=== PATIENT | male | born 1965 | race Caucasian/White ===

== ENCOUNTER 2017-06-11 14:26 | Emergency (ER) | payer SELFPAY ==
[2017-06-11 14:32] VITALS: BP 161/76
--- NOTE | 2017-06-11 15:39 | ER Document Report ---
HPI - HPI Patient complains to provider of: injuries from fall Onset: Yesterday Quality of pain: Achy Pain Level: 3 Context: 52 yo male slipped and right leg came out from under him while at the library yesterday causing him to fall. c/o left elbow pain, right ankle and .right 5th finger pain. No chest or abdominal pain. Associated Symptoms: None Exacerbated by: Movement Relieved by: Denies Similar symptoms previously: No Recently seen / treated by doctor: No - ROS ROS below otherwise negative: Yes Systems Reviewed and Negative: Yes All other systems reviewed and negative - CARDIOVASCULAR Cardiovascular: DENIES: Chest pain - DERM Skin Color: Normal Past Medical History - General Information source: Patient - Social History Smoking Status: Former Smoker Chew tobacco use (# tins/day): No Frequency of alcohol use: None Drug Abuse: None Occupation: [employer] Lives with: Family Family History: Reviewed & Not Pertinent Patient has suicidal ideation: No Patient has homicidal ideation: No - Past Medical History Cardiac Medical History: Reports: Hx Hypercholesterolemia, Hx Hypertension Endocrine Medical History: Reports: Hx Diabetes Mellitus Type 2 Renal/ Medical History: Denies: Hx Peritoneal Dialysis Past Surgical History: Reports: Hx Genitourinary Surgery - vasectomy, Hx Orthopedic Surgery - right finger Vertical Provider Document - CONSTITUTIONAL Agree With Documented VS: Yes Exam Limitations: No Limitations General Appearance: No Apparent Distress - INFECTION CONTROL TRAVEL OUTSIDE OF THE [place] IN LAST 30 DAYS: No - HEENT HEENT: Atraumatic, Normocephalic - NECK Neck: Supple - RESPIRATORY Respiratory: Breath Sounds Normal, No Respiratory Distress O2 Sat by Pulse Oximetry: 98 - CARDIOVASCULAR Cardiovascular: Regular Rate, Regular Rhythm - MUSCULOSKELETAL/EXTREMETIES Musculoskeletal/Extremeties: MAEW, FROM, Tender - right 5th MCP, no swelling, FROM, non tender left elbow, FROM, no swelling but tender medial right ankle- minimal - NEURO Level of Consciousness: Awake, Alert, Appropriate Motor/Sensory: No Motor Deficit, No Sensory Deficit - DERM Integumentary: Warm, Dry Course - Re-evaluation Re-evalutation: 06/11/17 16:37 X-rays are negative, patient is asking for something stronger than Ultram that he had at home and took and did not work. I recommended that he take Motrin and Tylenol as well and that the 3 of those should manage the pain. - Vital Signs Vital signs: Temp Pulse Resp BP Pulse Ox 98.1 F 54 L 20 161/76 H 98 06/11/17 14:31 06/11/17 14:31 06/11/17 14:31 06/11/17 14:31 06/11/17 14:31 Discharge - Discharge Clinical Impression: fall, sprain right 5th finger Right ankle sprain Qualifiers: Encounter type: initial encounter Involved ligament of ankle: unspecified ligament Qualified Code(s): S93.401A - Sprain of unspecified ligament of right ankle, initial encounter Left elbow contusion Qualifiers: Encounter type: initial encounter Qualified Code(s): S50.02XA - Contusion of left elbow, initial encounter Heel spur Qualifiers: Laterality: right Qualified Code(s): M77.31 - Calcaneal spur, right foot Condition: Good Disposition: HOME, SELF-CARE Additional Instructions: warm compress to sore areas see your doctor for follow up tylenol motrin ultram (you have at home) Please complete the patient satisfaction survey if you get one, and return it.. If you do not receive a survey, then you can go to the [facility] website, [email or web address] and place your comments about your very good care. Thank you very much. It was a pleasure being your medical provider today. Prescriptions: Ibuprofen [Motrin 800 mg Tablet] 800 mg PO Q8HP PRN #30 tablet PRN Reason: Referrals: ESTRELLA MARROQUIN MD [Primary Care Provider] - Follow up as needed
--- NOTE | 2017-06-11 16:24 | RADIOLOGY REPORT (SQ) ---
EXAM DESCRIPTION: ELBOW LEFT OVER 2 VIEWS COMPLETED DATE/TIME: 06/11/2017 4:11 pm REASON FOR STUDY: fall in library COMPARISON: None. NUMBER OF VIEWS: Four views. TECHNIQUE: AP, lateral, and both oblique radiographic images acquired of the left elbow. LIMITATIONS: None. FINDINGS: MINERALIZATION: Normal. BONES: No acute fracture or dislocation. No worrisome bone lesions. JOINT: No effusion. SOFT TISSUES: No soft tissue swelling. No foreign body. OTHER: No other significant finding. IMPRESSION: NEGATIVE STUDY OF THE LEFT ELBOW. NO RADIOGRAPHIC EVIDENCE OF ACUTE INJURY. TECHNICAL DOCUMENTATION: JOB ID: [id number] [employer]- All Rights Reserved
--- NOTE | 2017-06-11 16:26 | RADIOLOGY REPORT (SQ) ---
EXAM DESCRIPTION: HAND RIGHT 3 VIEWS COMPLETED DATE/TIME: 06/11/2017 4:11 pm REASON FOR STUDY: fall in library COMPARISON: None. EXAM PARAMETERS: NUMBER OF VIEWS: Three views. TECHNIQUE: AP, lateral and oblique radiographic images acquired of the right hand. LIMITATIONS: None. FINDINGS: MINERALIZATION: Normal. BONES: No acute fracture is seen. There is deformity of the terminal tuft of the 3rd distal phalanx, but the bone is corticated and this does not appear to represent an acute fracture. JOINTS: No effusions. SOFT TISSUES: No soft tissue swelling. No foreign body. OTHER: No other significant finding. IMPRESSION: No acute abnormality. Findings in the 3rd distal phalanx as described. Correlate clini teto. TECHNICAL DOCUMENTATION: JOB ID: [id number] [employer]- All Rights Reserved
--- NOTE | 2017-06-11 16:27 | RADIOLOGY REPORT (SQ) ---
EXAM DESCRIPTION: ANKLE RIGHT COMPLETE COMPLETED DATE/TIME: 06/11/2017 4:11 pm REASON FOR STUDY: fall in library COMPARISON: None. NUMBER OF VIEWS: Three views. TECHNIQUE: AP, lateral, and oblique radiographic images acquired of the right ankle. LIMITATIONS: None. FINDINGS: MINERALIZATION: Normal. BONES: No fracture. Calcaneal spurs. JOINTS: No effusions. SOFT TISSUES: No soft tissue swelling. No foreign body. OTHER: No other significant finding. IMPRESSION: Calcaneal spurs with no acute abnormality. TECHNICAL DOCUMENTATION: JOB ID: [id number] [employer]- All Rights Reserved
[2017-06-11] MEDS ORDERED: IBUPROFEN 800 MG TABLET PO ONE (16:36)
[2017-06-11] MEDS ORDERED: ACETAMINOPHEN 325 MG TABLET PO ONE (16:36)
== END 2017-06-11 16:52 | disposition home or self-care (01) ==
LOC: ER 14:26
DX: S93.401A Sprain of unspecified ligament of right ankle, initial encounter (principal); S50.02XA Contusion of left elbow, initial encounter; S63.616A Unspecified sprain of right little finger, initial encounter; M77.31 Calcaneal spur, right foot; W01.0XXA Fall on same level from slipping, tripping and stumbling without subsequent striking against object, initial encounter; E78.00 Pure hypercholesterolemia, unspecified; I10 Essential (primary) hypertension; Z87.891 Personal history of nicotine dependence
CPT/HCPCS: 99283

== ENCOUNTER 2018-07-29 11:06 | Emergency (ER) | payer OTHER ==
--- NOTE | 2018-07-29 11:33 | ER Document Report ---
ED Medical Screen (RME) - General Chief Complaint: Chest Pain Stated Complaint: SHORT OF BREATH/ABDOMINAL PAIN Time Seen by Provider: 07/29/18 11:31 Mode of Arrival: Ambulatory Information source: Patient Notes: 53-year-old male presented to ED for complaint of shortness of breath chest pressure pressure, abdominal distention, and pressure in his head when he bends over. He states he also if he breathes deep or bends over he gets very dizzy. He states he has a history of CHF COPD blood pressure cholesterol and diabetes. He states he also has Kidney insufficiency. Lungs are mildly diminished but not severely. Patient is alert and oriented respirations regular at this time. We will get blood work EKG chest x-ray and start a saline lock. Patient will be given aspirin. I have greeted and performed a rapid initial assessment of this patient. A comprehensive ED assessment and evaluation of the patient, analysis of test results and completion of medical decision making process will be conducted by an additional ED providers. TRAVEL OUTSIDE OF THE U.S. IN LAST 30 DAYS: No - Related Data Allergies/Adverse Reactions: lisinopril Allergy (Verified 07/29/18 11:09) Past Medical History - Past Medical History Cardiac Medical History: Reports: Hx Hypercholesterolemia, Hx Hypertension Endocrine Medical History: Reports: Hx Diabetes Mellitus Type 2 Renal/ Medical History: Denies: Hx Peritoneal Dialysis Past Surgical History: Reports: Hx Genitourinary Surgery - vasectomy, Hx Orthopedic Surgery - right finger Physical Exam - Vital signs Vitals: Pulse BP Pulse Ox 51 L 144/95 H 97 07/29/18 11:21 07/29/18 11:21 07/29/18 11:21 Course - Vital Signs Vital signs: Temp Pulse Resp BP Pulse Ox 51 L 144/95 H 97 07/29/18 11:21 07/29/18 11:21 07/29/18 11:21 Doctor's Discharge - Discharge Referrals: ESTRELLA MARROQUIN MD [Primary Care Provider] - Follow up as needed
[2018-07-29] MEDS ORDERED: ASPIRIN 81 MG TABLET, CHEWABLE PO ONE (11:34)
[2018-07-29 12:08] LABS: ABSOLUTE EOSINOPHILS # (AUTO) 0.1 10^3/uL (0.0-0.6); ABSOLUTE LYMPHOCYTES (AUTO) 1.3 10^3/uL (0.5-4.7); ABSOLUTE MONOCYTES (AUTO) 0.4 10^3/uL (0.1-1.4); ABSOLUTE NEUT (AUTO) 3.8 10^3/uL (1.7-8.2); BASOPHILS % (AUTO) 0.4 % (0-2); EOSINOPHILS % (AUTO) 2.2 % (0-6); HEMATOCRIT 39.3 % (37.9-51.0); HEMOGLOBIN 13.6 g/dL (13.5-17.0); LYMPHOCYTES % (AUTO) 22.7 % (13-45); MEAN CORPUSCULAR HEMOGLOBIN 30.2 pg (27.0-33.4); MEAN CORPUSCULAR HGB CONC 34.6 g/dL (32.0-36.0); MEAN CORPUSCULAR VOLUME 87 fl (80-97); MONOCYTES % (AUTO) 7.2 % (3-13); PLATELET COUNT 181 10^3/uL (150-450); RED CELL DISTRIBUTION WIDTH 14.9 % (11.5-14.0); SEGMENTED NEUTROPHILS % (AUTO) 67.5 % (42-78); TOTAL CELLS COUNTED % (AUTO) 100 %; WHITE BLOOD COUNT 5.6 10^3/uL (4.0-10.5)
[2018-07-29 12:11] LABS: APPEARANCE,URINE CLEAR; BILIRUBIN,URINE NEGATIVE (NEGATIVE); COLOR,URINE YELLOW; GLUCOSE, URINE 50 mg/dL (NEGATIVE); KETONES,URINE NEGATIVE (NEGATIVE); LEUKOCYTE ESTERASE,URINE NEGATIVE (NEGATIVE); NITRITE,URINE NEGATIVE (NEGATIVE); PROTEIN,URINE 100 mg/dL (NEGATIVE); URINE SPECIFIC GRAVITY 1.013; UROBILINOGEN,URINE NEGATIVE mg/dL (<2.0)
--- NOTE | 2018-07-29 12:21 | RADIOLOGY REPORT (SQ) ---
EXAM DESCRIPTION: CHEST 2 VIEWS COMPLETED DATE/TIME: 07/29/2018 12:12 pm REASON FOR STUDY: short of breath chest and head pressure COMPARISON: None. EXAM PARAMETERS: NUMBER OF VIEWS: two views TECHNIQUE: Digital Frontal and Lateral radiographic views of the chest acquired. RADIATION DOSE: NA LIMITATIONS: none FINDINGS: LUNGS AND PLEURA: No opacities, masses or pneumothorax. No pleural effusion. MEDIASTINUM AND HILAR STRUCTURES: No masses or contour abnormalities. HEART AND VASCULAR STRUCTURES: Heart normal size. No evidence for failure. BONES: No acute findings. HARDWARE: None in the chest. OTHER: No other significant finding. IMPRESSION: NO ACUTE RADIOGRAPHIC FINDING IN THE CHEST. TECHNICAL DOCUMENTATION: JOB ID: [id number] [employer]- All Rights Reserved Reading location - IP/workstation name: [email or web address]
--- NOTE | 2018-07-29 12:23 | RADIOLOGY REPORT (SQ) ---
EXAM DESCRIPTION: KUB/ABDOMEN (SINGLE VIEW) COMPLETED DATE/TIME: 07/29/2018 12:12 pm REASON FOR STUDY: abdominal distention and pressure COMPARISON: None. NUMBER OF VIEWS: One view. TECHNIQUE: Supine radiographic image of the abdomen acquired. LIMITATIONS: None. FINDINGS: BOWEL GAS PATTERN: Normal bowel gas pattern. No dilated loops. CALCIFICATIONS: Punctate calcified densities overlying right renal pelvis. SOFT TISSUES: No gross mass or suggestion of organomegaly. HARDWARE: None. BONES: No bone lesions or fracture. OTHER: No other significant finding. IMPRESSION: Small right renal calculi. Reading location - IP/workstation name: [email or web address]
[2018-07-29 12:24] LABS: ALANINE AMINOTRANSFERASE 100 U/L (21-72); ALBUMIN 3.9 g/dL (3.5-5.0); ALKALINE PHOSPHATASE 92 U/L (38-126); ANION GAP 7 (5-19); ASPARTATE AMINO TRANSFERASE 59 U/L (17-59); BILIRUBIN,DIRECT 0.3 mg/dL (0.0-0.4); BILIRUBIN,TOTAL 0.6 mg/dL (0.2-1.3); BLOOD UREA NITROGEN 22 mg/dL (7-20); CALCIUM 9.7 mg/dL (8.4-10.2); CARBON DIOXIDE 28 mmol/L (22-30); CHLORIDE 102 mmol/L (98-107); CREATINE KINASE 104 U/L (55-170); GLUCOSE 226 mg/dL (75-110); POTASSIUM 4.4 mmol/L (3.6-5.0); SODIUM 137.1 mmol/L (137-145); TOTAL PROTEIN 6.5 g/dL (6.3-8.2)
[2018-07-29 12:39] LABS: CREATINE KINASE MB 1.29 ng/mL (<4.55); TROPONIN I 0.013 ng/mL
--- NOTE | 2018-07-29 13:58 | ER Document Report ---
ED General - General Chief Complaint: Chest Pain Stated Complaint: SHORT OF BREATH/ABDOMINAL PAIN Time Seen by Provider: 07/29/18 11:31 Mode of Arrival: Ambulatory TRAVEL OUTSIDE OF THE [place] IN LAST 30 DAYS: No - HPI Patient complains to provider of: Feeling unwell bilateral leg swelling shortness of breath Notes: Patient coming in for multiple complaints patient was seen by the pti provider whose note is provided below 53-year-old male presented to ED for complaint of shortness of breath chest pressure pressure, abdominal distention, and pressure in his head when he bends over. He states he also if he breathes deep or bends over he gets very dizzy. He states he has a history of CHF COPD blood pressure cholesterol and diabetes. He states he also has Kidney insufficiency. Lungs are mildly diminished but not severely. Patient is alert and oriented respirations regular at this time. We will get blood work EKG chest x-ray and start a saline lock. Patient will be given aspirin. Upon my evaluation patient mostly complains of abdominal distention left lower chest wall pain swelling of his legs patient states mostly concerned they may be having a CHF exacerbation. Patient states he has been compliant with his medications. Patient also states he is noticed that his umbilical hernia has been getting larger patient otherwise denies any fevers or chills denies any recent travel patient looks to be in no obvious distress upon my evaluation. A brief review of the patient's medical records available in [facility] [employer] was performed - Related Data Allergies/Adverse Reactions: lisinopril Allergy (Verified 07/29/18 11:09) Past Medical History - General Information source: Patient - Social History Smoking Status: Unknown if Ever Smoked Family History: Reviewed & Not Pertinent Patient has suicidal ideation: No Patient has homicidal ideation: No - Past Medical History Cardiac Medical History: Reports: Hx Hypercholesterolemia, Hx Hypertension Endocrine Medical History: Reports: Hx Diabetes Mellitus Type 2 Renal/ Medical History: Denies: Hx Peritoneal Dialysis Past Surgical History: Reports: Hx Genitourinary Surgery - vasectomy, Hx Orthopedic Surgery - right finger Review of Systems - Review of Systems Constitutional: No symptoms reported EENT: No symptoms reported Cardiovascular: Chest pain, Dyspnea Respiratory: Short of breath Gastrointestinal: Abdominal pain Genitourinary: No symptoms reported Male Genitourinary: No symptoms reported Musculoskeletal: No symptoms reported Skin: No symptoms reported Hematologic/Lymphatic: No symptoms reported Neurological/Psychological: No symptoms reported -: Yes All other systems reviewed and negative Physical Exam - Vital signs Vitals: Pulse BP Pulse Ox 51 L 144/95 H 97 07/29/18 11:21 07/29/18 11:21 07/29/18 11:21 Interpretation: Normal - General General appearance: Appears well, Alert - HEENT Head: Normocephalic, Atraumatic Eyes: Normal Pupils: PERRL - Respiratory Respiratory status: No respiratory distress Chest status: Nontender Breath sounds: Normal Chest palpation: Normal - Cardiovascular Rhythm: Regular Heart sounds: Normal auscultation Murmur: No - Abdominal Inspection: Normal, Other - Umbilical hernia that is reducible Distension: No distension Bowel sounds: Normal Tenderness: Nontender Organomegaly: No organomegaly - Back Back: Normal, Nontender - Extremities General upper extremity: Normal inspection, Nontender, Normal color, Normal ROM, Normal temperature General lower extremity: Normal inspection, Nontender, Edema - 1-2+, Normal color, Normal ROM, Normal temperature, Normal weight bearing. No: Arcelia's sign - Neurological Neuro grossly intact: Yes Cognition: Normal Orientation: AAOx4 Adrian Coma Scale Eye Opening: Spontaneous Adrian Coma Scale Verbal: Oriented Elmore Coma Scale Motor: Obeys Commands Adrian Coma Scale Total: 15 Speech: Normal Motor strength normal: LUE, RUE, LLE, RLE Sensory: Normal - Psychological Associated symptoms: Normal affect, Normal mood - Skin Skin Temperature: Warm Skin Moisture: Dry Skin Color: Normal Course - Re-evaluation Re-evalutation: 07/29/18 15:24 The patient has atypical chest pain as the patient's chest pain is not suggestive of pulmonary embolus, cardiac ischemia, aortic dissection, or other serious etiology. Given the extremely low risk of these diagnoses further testing and evaluation for these possibilities does not appear to be indicated at this time. The patient has been instructed to return if the symptoms worsen or change in any way. 07/29/18 15:25 Patient evaluation revealing critical pathology. Patient does have swelling of his lower legs does upon reevaluation admit to partaking in all the festivities eating ham which may have caused increased swelling recommend increasing his Lasix for the next 2 days to twice daily patient states he has no pills at home to perform this otherwise no critical pathology seen patient is to follow-up with primary care physician. - Vital Signs Vital signs: Temp Pulse Resp BP Pulse Ox 98.1 F 62 14 156/77 H 95 07/29/18 14:26 07/29/18 14:26 07/29/18 14:26 07/29/18 14:26 07/29/18 14:26 - Laboratory Result Diagrams: 07/29/18 11:51 07/29/18 11:51 Laboratory results interpreted by me: 07/29/18 07/29/18 07/29/18 11:51 11:51 11:51 RDW 14.9 H BUN 22 H Creatinine 1.31 H Est GFR (Non-Af Amer) 57 L Glucose 226 H ALT 100 H Urine Protein 100 H Urine Glucose (UA) 50 H Discharge - Discharge Clinical Impression: Abdominal discomfort, Bilateral lower extremity edema, History of hypertension Dyspnea Qualifiers: Dyspnea type: unspecified Qualified Code(s): R06.00 - Dyspnea, unspecified Umbilical hernia Qualifiers: Obstruction and gangrene presence: without obstruction or gangrene Qualified Code(s): K42.9 - Umbilical hernia without obstruction or gangrene Condition: Good Disposition: HOME, SELF-CARE Instructions: Dependent Edema ([facility]), High Blood Pressure, Requiring Treatment ([facility]), Lasix, Umbilical Hernia ([facility]) Additional Instructions: Your laboratory studies not show any signs of skin pathology. I would recommend that you take Lasix twice a day for the next 48 hours to aid in some of your lower leg edema. I recommend following up with your primary care physician. Your chest x-ray does not show any signs of pneumonia Your abdominal x-ray shows signs of gas no other significant pathology Your laboratory studies showed no signs of cardiac damage of overt CHF electrolyte abnormality or signs of suggestive infection Referrals: ESTRELLA MARROQUIN MD [Primary Care Provider] - Follow up as needed
[2018-07-29 14:31] VITALS: BP 156/77
--- NOTE | 2018-07-29 15:09 | EKG REPORT ---
SEVERITY:- ABNORMAL ECG - SINUS RHYTHM NONSPECIFIC INTRAVENTRICULAR CONDUCTION DELAY : Confirmed by: Tina Cordero 29-Jul-2018 15:08:10
== END 2018-07-29 14:26 | disposition home or self-care (01) ==
LOC: ER 11:06
DX: R60.9 Edema, unspecified (principal); K42.9 Umbilical hernia without obstruction or gangrene; R06.00 Dyspnea, unspecified; R10.9 Unspecified abdominal pain; R07.9 Chest pain, unspecified; R06.02 Shortness of breath; E78.00 Pure hypercholesterolemia, unspecified; I10 Essential (primary) hypertension; E11.9 Type 2 diabetes mellitus without complications
CPT/HCPCS: 36415; 71046; 74018; 80053; 81001; 82550; 82553; 83880; 84484; 85025; 93005; 93010; 99285

== ENCOUNTER 2018-09-01 11:30 | Observation (INO) | payer OTHER ==
--- NOTE | 2018-09-01 11:56 | ER Document Report ---
ED Medical Screen (RME) - General Chief Complaint: Chest Pain Stated Complaint: SHORT OF BREATH,CHEST PAIN,DIZZY Time Seen by Provider: 09/01/18 11:50 Primary Care Provider: ESTRELLA MARROQUIN MD [Primary Care Provider] - Follow up as needed TRAVEL OUTSIDE OF THE [place]. IN LAST 30 DAYS: No - HPI Notes: 09/01/18 11:55 cp sob - Related Data Allergies/Adverse Reactions: lisinopril Allergy (Verified 07/29/18 11:09) Past Medical History - Past Medical History Cardiac Medical History: Reports: Hx Hypercholesterolemia, Hx Hypertension Endocrine Medical History: Reports: Hx Diabetes Mellitus Type 2 Renal/ Medical History: Denies: Hx Peritoneal Dialysis Past Surgical History: Reports: Hx Genitourinary Surgery - vasectomy, Hx Orthopedic Surgery - right finger Review of Systems - Review of Systems Cardiovascular: Chest pain Respiratory: Short of breath -: Yes All other systems reviewed and negative Physical Exam - Vital signs Vitals: Temp Pulse Resp BP Pulse Ox 98.1 F 54 L 16 143/85 H 94 09/01/18 11:48 09/01/18 11:48 09/01/18 11:48 09/01/18 11:48 09/01/18 11:48 - Respiratory Respiratory status: No respiratory distress Chest status: Nontender Breath sounds: Normal Chest palpation: Normal Course - Vital Signs Vital signs: Temp Pulse Resp BP Pulse Ox 98.1 F 54 L 16 143/85 H 94 09/01/18 11:48 09/01/18 11:48 09/01/18 11:48 09/01/18 11:48 09/01/18 11:48 Doctor's Discharge - Discharge Referrals: ESTRELLA MARROQUIN MD [Primary Care Provider] - Follow up as needed
[2018-09-01 12:24] LABS: MEAN CORPUSCULAR VOLUME 88 fl (80-97)
--- NOTE | 2018-09-01 12:26 | ER Document Report ---
ED General - General Chief Complaint: Chest Pain Stated Complaint: SHORT OF BREATH,CHEST PAIN,DIZZY Time Seen by Provider: 09/01/18 11:50 Primary Care Provider: ESTRELLA MARROQUIN MD [Primary Care Provider] - Follow up as needed Notes: 53-year-old male, overweight with hypertension history of right-sided CHF COPD and a long smoking history, has now quit, presents with abrupt onset of severe right-sided chest pain, shortness of breath after vacuuming the floor. He walked over had some water and the pain resolved after about 10 minutes. Has not recurred. No pain radiation or diaphoresis. History of stress test in 2013 in [place] which she says was normal. No ripping or tearing pain not maximal at onset no radiation to back no neurologic symptoms. TRAVEL OUTSIDE OF THE [place] IN LAST 30 DAYS: No - Related Data Allergies/Adverse Reactions: lisinopril Allergy (Verified 07/29/18 11:09) Past Medical History - Social History Smoking Status: Former Smoker Family History: Reviewed & Not Pertinent Patient has suicidal ideation: No Patient has homicidal ideation: No - Past Medical History Cardiac Medical History: Reports: Hx Hypercholesterolemia, Hx Hypertension Endocrine Medical History: Reports: Hx Diabetes Mellitus Type 2 Renal/ Medical History: Denies: Hx Peritoneal Dialysis Past Surgical History: Reports: Hx Genitourinary Surgery - vasectomy, Hx Orthopedic Surgery - right finger Review of Systems - Review of Systems Notes: REVIEW OF SYSTEMS GEN: Denies fever, chills, weight loss ENT: Denies sore throat, nasal discharge, ear pain EYES: Denies blurry vision, eye pain, discharge CV:chest pain, denies palpitations, edema RESP: Denies cough, shortness of breath, wheezing GI: Denies abdominal pain, nausea, vomiting, diarrhea MSK: Denies joint pain/swelling, edema, SKIN: Denies rash, skin lesions LYMPH: Denies swollen glands/lymph nodes NEURO: Denies headache, focal weakness or numbness, dizziness PSYCH: Denies depression, suicidal or homicidal ideation PHYSICAL EXAMINATION General: Obese. No acute distress, well-nourished Head: Atraumatic, normocephalic ENT: Mouth normal, oropharynx moist, no exudates or tonsillar enlargement Eyes: Conjunctiva normal, pupils equal, lids normal Neck: No JVD, supple, no guarding CVS: Normal rate, regular rhythm, no murmurs Resp: No resp distress, equal and normal breath sounds bilaterally GI: Nondistended, soft, no tenderness to palpation, no rebound or guarding Ext: No deformities, no edema, normal range of motion in upper and lower ext Back: No CVA or midline TTP Skin: No rash, warm Lymphatic: No lymphadeopathy noted Neuro: Awake, alert. Face symmetric. GCS 15. Physical Exam - Vital signs Vitals: Temp Pulse Resp BP Pulse Ox 98.1 F 54 L 16 143/85 H 94 09/01/18 11:48 09/01/18 11:48 09/01/18 11:48 09/01/18 11:48 09/01/18 11:48 Course - Re-evaluation Re-evalutation: 09/01/18 12:25 53-year-old male with multiple risk factors for coronary disease, negative stress test just about 5 years ago, presents with brief episode of chest pain which has typical characteristics. Pain-free in the ED. ECG is negative and unchanged. HEART 4 09/01/18 15:02 Patient still having intermittent pain. First troponin negative. Given this and his ongoing shortness of breath without examination he will be admitted. Discussed with hospitalist. - Vital Signs Vital signs: Temp Pulse Resp BP Pulse Ox 98.1 F 54 L 16 143/85 H 94 09/01/18 11:48 09/01/18 11:48 09/01/18 11:48 09/01/18 11:48 09/01/18 11:48 - Laboratory Result Diagrams: 09/01/18 12:09 09/01/18 12:09 Laboratory results interpreted by me: 09/01/18 09/01/18 12:09 12:09 RDW 15.0 H BUN 28 H Creatinine 1.58 H Est GFR ( Amer) 56 L Est GFR (Non-Af Amer) 46 L Glucose 131 H AST 102 H ALT 120 H Creatine Kinase 173 H - Diagnostic Test Radiology reviewed: Image reviewed, Reports reviewed - EKG Interpretation by Me Rate: Normal Rhythm: NSR When compared to previous EKG there are: No significant change - No acute ST or T wave changes compared to prior Discharge - Discharge Clinical Impression: Chest pain, unspecified Qualifiers: Chest pain type: unspecified Qualified Code(s): R07.9 - Chest pain, unspecified Condition: Fair Disposition: ADMITTED OBSERVATION Admitting Provider: Hospitalist Unit Admitted: Telemetry Referrals: ESTRELLA MARROQUIN MD [Primary Care Provider] - Follow up as needed
--- NOTE | 2018-09-01 12:29 | RADIOLOGY REPORT (SQ) ---
EXAM DESCRIPTION: CHEST SINGLE VIEW COMPLETED DATE/TIME: 09/01/2018 12:19 pm REASON FOR STUDY: sob COMPARISON: 08/29/2017 EXAM PARAMETERS: NUMBER OF VIEWS: One view. TECHNIQUE: Single frontal radiographic view of the chest acquired. RADIATION DOSE: NA LIMITATIONS: None. FINDINGS: LUNGS AND PLEURA: No opacities, masses or pneumothorax. No pleural effusion. MEDIASTINUM AND HILAR STRUCTURES: No masses. Contour normal. HEART AND VASCULAR STRUCTURES: Heart normal in size. Normal vasculature. BONES: No acute findings. HARDWARE: None in the chest. OTHER: No other significant finding. IMPRESSION: NO ACUTE RADIOGRAPHIC FINDING IN THE CHEST. TECHNICAL DOCUMENTATION: JOB ID: [id number] [employer]- All Rights Reserved Reading location - IP/workstation name: [email or web address]
[2018-09-01 12:40] LABS: ABSOLUTE EOSINOPHILS # (AUTO) 0.1 10^3/uL (0.0-0.6); ABSOLUTE LYMPHOCYTES (AUTO) 1.4 10^3/uL (0.5-4.7); ABSOLUTE MONOCYTES (AUTO) 0.6 10^3/uL (0.1-1.4); ABSOLUTE NEUT (AUTO) 6.8 10^3/uL (1.7-8.2); BASOPHILS % (AUTO) 0.4 % (0-2); EOSINOPHILS % (AUTO) 1.6 % (0-6); HEMATOCRIT 43.7 % (37.9-51.0); HEMOGLOBIN 15.1 g/dL (13.5-17.0); LYMPHOCYTES % (AUTO) 15.6 % (13-45); MEAN CORPUSCULAR HEMOGLOBIN 30.6 pg (27.0-33.4); MEAN CORPUSCULAR HGB CONC 34.7 g/dL (32.0-36.0); MONOCYTES % (AUTO) 6.5 % (3-13); PLATELET COUNT 201 10^3/uL (150-450); RED BLOOD COUNT 4.95 10^6/uL (4.35-5.55); SEGMENTED NEUTROPHILS % (AUTO) 75.9 % (42-78); TOTAL CELLS COUNTED % (AUTO) 100 %
[2018-09-01 12:56] LABS: ALANINE AMINOTRANSFERASE 120 U/L (21-72); ALBUMIN 4.6 g/dL (3.5-5.0); ALKALINE PHOSPHATASE 79 U/L (38-126); ANION GAP 12 (5-19); ASPARTATE AMINO TRANSFERASE 102 U/L (17-59); BILIRUBIN,DIRECT 0.4 mg/dL (0.0-0.4); BILIRUBIN,TOTAL 0.9 mg/dL (0.2-1.3); BLOOD UREA NITROGEN 28 mg/dL (7-20); CALCIUM 9.7 mg/dL (8.4-10.2); CARBON DIOXIDE 30 mmol/L (22-30); CHLORIDE 99 mmol/L (98-107); CREATINE KINASE 173 U/L (55-170); GLUCOSE 131 mg/dL (75-110); LIPASE 178.1 U/L (23-300); POTASSIUM 4.3 mmol/L (3.6-5.0); SODIUM 141.2 mmol/L (137-145); TOTAL PROTEIN 7.4 g/dL (6.3-8.2)
[2018-09-01 13:05] LABS: CREATINE KINASE MB 1.42 ng/mL (<4.55); TROPONIN I 0.014 ng/mL
--- NOTE | 2018-09-01 13:22 | EKG REPORT ---
SEVERITY:- ABNORMAL ECG - SINUS RHYTHM BORDERLINE T ABNORMALITIES, INFERIOR LEADS : Confirmed by: Malik Gallagher MD 01-Sep-2018 13:21:18
[2018-09-01] MEDS ORDERED: ACETAMINOPHEN 325 MG TABLET PO ONE (14:57)
[2018-09-01] MEDS ORDERED: IPRATROPIUM/ALBUTEROL 0.5-2.5 MG/3 ML AMPUL NEB PRN (16:31)
[2018-09-01] MEDS ORDERED: ACETAMINOPHEN 325 MG TABLET PO PRN (16:31)
[2018-09-01] MEDS ORDERED: ONDANSETRON HCL INJ/PF 4 MG/2 ML SDV IV PRN (16:45)
[2018-09-01] MEDS ORDERED: MAGNESIUM HYDROXIDE SUSP 30 ML UDCUP PO PRN (16:45)
[2018-09-01] MEDS ORDERED: MAG HYDROX/AL HYDROX/SIMETH SUSP 30 ML UDCUP PO PRN (16:45)
[2018-09-01] MEDS ORDERED: NORMAL SALINE 1000 ML 1,000 ML IV PRN (16:51)
[2018-09-01] MEDS ORDERED: DEXTROSE 40% GEL 15 GM TUBE PO PRN ×2 (19:31)
[2018-09-01] MEDS ORDERED: GLUCAGON,HUMAN RECOMB 1 MG INJ IM PRN (19:31)
[2018-09-01] MEDS ORDERED: DEXTROSE 50%-WATER 25 GM/50 ML DISP.SYRIN IV PRN ×2 (19:31)
[2018-09-01] MEDS ORDERED: METOPROLOL TARTRATE PF/INJ 5 MG/5 ML SDV IV PRN (19:37)
--- NOTE | 2018-09-01 19:40 | PDOC H&P ---
History of Present Illness Admission Date/PCP: 09/01/18 15:23 ESTRELLA MARROQUIN MD Patient complains of: Chest pain History of Present Illness: NILTON FARRELL is a 53 year old male with a past medical history of COPD, MARIELENA, CHF, DM 2, CKD 3, hypertension, hyperlipidemia, gout who presented to the emergency department today with a an atypical chest pain lasting approximately 10 minutes, substernal described as sharp nonradiating and not associated with symptoms at the time. Says that the pain resolved after drinking water. However, he then developed intermittent shortness of breath and dizziness. He reports that since arriving to the emergency department he has noted continued intermittent sharp pains though now lasting only seconds. He denies previous history of the same; does believe he had a negative stress test approximately 6 [place] ago [place] Not followed by local cardiology. Evaluation in the emergency department revealed CKD (creatinine of 1.58, BUN 28), minimally elevated LFTs, negative troponin, normal lipase, benign chest x- ray, and EKG demonstrating sinus bradycardia with nonspecific T wave changes to the inferior leads. He is referred to the hospitalist service for chest pain rule out. Past Medical History Cardiac Medical History: Reports: Congestive Heart Failure, Hyperlipidema, Hyp ertension Denies: Coronary Artery Disease, Myocardial Infarction Pulmonary Medical History: Reports: Chronic Obstructive Pulmonary Disease (COPD), Sleep Apnea EENT Medical History: Reports: None Endocrine Medical History: Reports: Diabetes Mellitus Type 2, Obesity Renal/ Medical History: Reports: Chronic Kidney Disease Malignancy Medical History: Reports: None GI Medical History: Reports: Gastroesophageal Reflux Disease Musculoskeltal Medical History: Reports: None Skin Medical History: Reports: None Psychiatric Medical History: Reports: Tobacco Dependency Traumatic Medical History: Reports: None Hematology: Reports: None Infectious Medical History: Reports: None Past Surgical History Past Surgical History: Reports: Orthopedic Surgery - right finger Social History Information Source: Patient Smoking Status: Former Smoker Cigarettes Packs Per Day: 1.5 Number of Years Smokin Last Time Smoked: 09/02/13 Frequency of Alcohol Use: None Hx Recreational Drug Use: No Drugs: None Hx Prescription Drug Abuse: No - Advance Directive Resuscitation Status: Full Code Family History Family History: Reviewed & Not Pertinent Parental Family History Reviewed: Yes Children Family History Reviewed: Yes Sibling(s) Family History Reviewed.: Yes Medication/Allergy Home Medications: Albuterol Sulfate [Proair Hfa Inhalation Aerosol 8.5 gm Mdi] 2 puff IH ASDIR PRN 09/01/18 Allopurinol [Zyloprim 300 mg Tablet] 300 mg PO DAILY 09/01/18 Amlodipine Besylate [Norvasc 10 mg Tablet] 10 mg PO DAILY 09/01/18 Budesonide/Formoterol Fumarate [Symbicort Hfa 160-4.5 Mcg Inhaler 6 gm] 2 puff IH Q12 09/01/18 Cetirizine HCl [Zyrtec 10 mg Tablet] 10 mg PO QHS 09/01/18 Clonidine HCl [Catapres 0.3 mg Tablet] 0.3 mg PO DAILY 09/01/18 Esomeprazole Magnesium [Nexium 24Hr] 20 mg PO DAILY 09/01/18 Fenofibrate 54 mg PO DAILY 09/01/18 Furosemide [Lasix 40 mg Tablet] 40 mg PO DAILY 09/01/18 Hydralazine HCl [Apresoline 25 mg Tablet] 25 mg PO BID 09/01/18 Nebivolol HCl [Bystolic] 20 mg PO DAILY 09/01/18 Tiotropium [place] [Spiriva Respimat] 2 puff IH DAILY 09/01/18 Allergies/Adverse Reactions: lisinopril Allergy (Verified 07/29/18 11:09) Review of Systems Constitutional: ABSENT: chills, fever(s), headache(s), weight gain, weight loss Eyes: ABSENT: visual disturbances Ears: ABSENT: hearing changes Cardiovascular: PRESENT: chest pain, dyspnea on exertion. ABSENT: edema, orthropnea, palpitations Respiratory: PRESENT: cough, dyspnea. ABSENT: hemoptysis Gastrointestinal: ABSENT: abdominal pain, constipation, diarrhea, hematemesis, hematochezia, nausea, vomiting Genitourinary: ABSENT: dysuria, hematuria Musculoskeletal: ABSENT: joint swelling Integumentary: ABSENT: rash, wounds Neurological: ABSENT: abnormal gait, abnormal speech, confusion, dizziness, focal weakness, syncope Psychiatric: ABSENT: anxiety, depression, homidical ideation, suicidal ideation Endocrine: ABSENT: cold intolerance, heat intolerance, polydipsia, polyuria Hematologic/Lymphatic: ABSENT: easy bleeding, easy bruising Physical Exam Vital Signs: Temp Pulse Resp BP Pulse Ox 97.7 F 51 L 15 143/81 H 98 09/01/18 18:02 09/01/18 18:02 09/01/18 18:02 09/01/18 18:02 09/01/18 18:02 Intake & Output 08/31/18 09/01/18 09/02/18 06:59 06:59 06:59 Weight 138.5 kg General appearance: PRESENT: no acute distress, cooperative, morbidly obese, well-developed, well-nourished Head exam: PRESENT: atraumatic, normocephalic Eye exam: PRESENT: conjunctiva pink, EOMI, PERRLA. ABSENT: scleral icterus Ear exam: PRESENT: normal external ear exam Mouth exam: PRESENT: moist, tongue midline Neck exam: ABSENT: carotid bruit, JVD, lymphadenopathy, thyromegaly Respiratory exam: PRESENT: clear to auscultation ruthann, symmetrical, unlabored, other - Supplemental oxygen via nasal cannula. ABSENT: rales, rhonchi, wheezes Cardiovascular exam: PRESENT: RRR, +S1, +S2. ABSENT: diastolic murmur, rubs, systolic murmur Pulses: PRESENT: normal dorsalis pedis pul Vascular exam: PRESENT: normal capillary refill GI/Abdominal exam: PRESENT: normal bowel sounds, soft. ABSENT: distended, guarding, mass, organolmegaly, rebound, tenderness Rectal exam: PRESENT: deferred Extremities exam: PRESENT: full ROM. ABSENT: calf tenderness, clubbing, pedal edema Neurological exam: PRESENT: alert, awake, oriented to person, oriented to place, oriented to time, oriented to situation, CN II-XII grossly intact. ABSENT: motor sensory deficit Psychiatric exam: PRESENT: appropriate affect, normal mood. ABSENT: homicidal ideation, suicidal ideation Skin exam: PRESENT: dry, intact, warm. ABSENT: cyanosis, rash Results Laboratory Results: 09/01/18 12:09 09/01/18 12:09 09/01/18 09/01/18 12:09 12:09 WBC 9.0 RBC 4.95 Hgb 15.1 Hct 43.7 MCV 88 MCH 30.6 MCHC 34.7 RDW 15.0 H Plt Count 201 Seg Neutrophils % 75.9 Lymphocytes % 15.6 Monocytes % 6.5 Eosinophils % 1.6 Basophils % 0.4 Absolute Neutrophils 6.8 Absolute Lymphocytes 1.4 Absolute Monocytes 0.6 Absolute Eosinophils 0.1 Absolute Basophils 0.0 Sodium 141.2 Potassium 4.3 Chloride 99 Carbon Dioxide 30 Anion Gap 12 BUN 28 H Creatinine 1.58 H Est GFR ( Amer) 56 L Est GFR (Non-Af Amer) 46 L Glucose 131 H Calcium 9.7 Magnesium 1.8 Total Bilirubin 0.9 AST 102 H ALT 120 H Alkaline Phosphatase 79 Total Protein 7.4 Albumin 4.6 Lipase 178.1 09/01/18 09/01/18 09/01/18 12:09 12:09 12:09 Creatine Kinase 173 H CK-MB (CK-2) 1.42 Troponin I 0.014 NT-Pro-B Natriuret Pep 92 09/01/18 16:46 Creatine Kinase CK-MB (CK-2) Troponin I 0.015 NT-Pro-B Natriuret Pep Impressions: Chest X-Ray 09/01/18 11:50 IMPRESSION: NO ACUTE RADIOGRAPHIC FINDING IN THE CHEST. Assessment & Plan - Diagnosis (1) Chest pain, unspecified Qualifiers: Chest pain type: unspecified Qualified Code(s): R07.9 - Chest pain, unspecified Is this a current diagnosis for this admission?: Yes Plan: Patient presented with atypical chest pain. An initial workup in the emergency department was unremarkable including initial negative troponin, benign chest x-ray, and unremarkable EKG. He does have multiple risk factors including age, male, tobacco use, obesity, hypertension, hyperlipidemia, and diabetes. Therefore he is admitted for chest pain rule out. ProBNP is 92 He will be admitted to the medical floor on continuous cardiac telemetry. We will trend troponins. Given his history of "right side" CHF, will obtain echocardiogram. Stress test in the morning. Will risk stratify with TSH, A1c, and lipid panel with a.m. lab work. (2) Hypertension Is this a current diagnosis for this admission?: Yes Plan: Patient is noted to be mildly hypertensive at present; blood pressure 139/71 Home medication list includes amlodipine, hydralazine, Bystolic, clonidine, furosemide. Patient is placed on a cardiac diet. We will continue amlodipine 10 mg nightly. We will resume home medications once dosing is reconciled. IV Lopressor as needed for blood pressure control. (3) COPD (chronic obstructive pulmonary disease) Is this a current diagnosis for this admission?: Yes Plan: Stable and without exacerbation at this time. Continue home dose of Spiriva and Symbicort. As needed nebulizer treatments. Continue home dose Zyrtec. No indications for antibiotics or steroids at this time. (4) MARIELENA (obstructive sleep apnea) Is this a current diagnosis for this admission?: Yes Plan: Supplemental oxygen as needed to maintain oxygen saturations >89%. May use home BiPAP device. - Time Time Spent: 50 to 70 Minutes Medications reviewed and adjusted accordingly: Yes Anticipated discharge: Home Within: within 24 hours
[2018-09-01] MEDS ORDERED: ALBUTEROL SULFATE HFA (90 MCG/PUFF) 200 PUFF/8.5 GM MDI IH PRN (20:54)
[2018-09-01] MEDS ORDERED: CETIRIZINE 10 MG TABLET PO SCH ×2 (22:00)
[2018-09-01] MEDS ORDERED: BUDESONIDE/FORMOTEROL 160-4.5 MCG 60 PUFF/6 GM MDI IH SCH (22:00)
[2018-09-01] MEDS ORDERED: (PENDING PHARMACY ID) (Apremilast [Otezla] 30 MG) PO SCH (22:00)
[2018-09-01] MEDS ORDERED: AMLODIPINE BESYLATE 10 MG TABLET PO SCH (22:00)
[2018-09-01] MEDS: HEPARIN SOD (PORCINE) 5,000 UNIT/ML 1 ML SYRINGE SUBCUT SCH (22:19)
[2018-09-01] MEDS: OTEZLA 30 MG PO SCH (22:22)
[2018-09-01] MEDS: BUDESONIDE/FORMOTEROL 160-4.5 MCG 60 PUFF/6 GM MDI IH SCH (22:22)
[2018-09-01] MEDS: FAMOTIDINE 20 MG TABLET PO SCH (22:23)
[2018-09-01] MEDS: HYDRALAZINE HCL 25 MG TABLET PO SCH (22:23)
[2018-09-01] MEDS: INSULIN LISPRO 100 UNIT/ML 3 ML VIAL SUBCUT SCH (22:24)
[2018-09-02] MEDS: HEPARIN SOD (PORCINE) 5,000 UNIT/ML 1 ML SYRINGE SUBCUT SCH (05:30)
[2018-09-02] MEDS ORDERED: LANSOPRAZOLE 15 MG TAB.RAP.DR PO SCH (06:00)
[2018-09-02 07:11] LABS: HEMATOCRIT 40.9 % (37.9-51.0); HEMOGLOBIN 14.2 g/dL (13.5-17.0); MEAN CORPUSCULAR HEMOGLOBIN 30.9 pg (27.0-33.4); MEAN CORPUSCULAR HGB CONC 34.7 g/dL (32.0-36.0); MEAN CORPUSCULAR VOLUME 89 fl (80-97); PLATELET COUNT 164 10^3/uL (150-450); RED CELL DISTRIBUTION WIDTH 14.8 % (11.5-14.0); WHITE BLOOD COUNT 7.3 10^3/uL (4.0-10.5)
[2018-09-02 07:28] LABS: ANION GAP 9 (5-19); BLOOD UREA NITROGEN 26 mg/dL (7-20); CALCIUM 9.5 mg/dL (8.4-10.2); CARBON DIOXIDE 29 mmol/L (22-30); CHLORIDE 102 mmol/L (98-107); CHOLESTEROL 193.03 mg/dL (0-200); GLUCOSE 196 mg/dL (75-110); POTASSIUM 4.2 mmol/L (3.6-5.0); SODIUM 139.9 mmol/L (137-145); TRIGLYCERIDES 373 mg/dL (<150)
[2018-09-02 07:39] LABS: DIRECT LDL 103 mg/dL (<100)
[2018-09-02] MEDS: INSULIN LISPRO 100 UNIT/ML 3 ML VIAL SUBCUT SCH ×2 (07:49→15:24)
[2018-09-02 08:18] LABS: VLDL CHOLESTEROL 74.6 mg/dL (10-31)
[2018-09-02] MEDS ORDERED: TIOTROPIUM BROMIDE DPI 5 CAP/KIT (18 MCG/CAP) IH SCH (10:00)
[2018-09-02] MEDS ORDERED: ASPIRIN 81 MG TABLET, CHEWABLE PO SCH (10:00)
[2018-09-02] MEDS ORDERED: (PENDING PHARMACY ID) (Esomeprazole Magnesium [Nexium 24hr] 20 MG) PO SCH (10:00)
[2018-09-02] MEDS ORDERED: FUROSEMIDE 40 MG TABLET PO SCH (10:00)
[2018-09-02] MEDS ORDERED: DOCUSATE SODIUM 100 MG CAPSULE PO SCH (10:00)
[2018-09-02] MEDS ORDERED: ALLOPURINOL 300 MG TABLET PO SCH (10:00)
[2018-09-02] MEDS ORDERED: NEBIVOLOL HCL 10 MG TABLET PO SCH ×2 (10:00)
[2018-09-02] MEDS ORDERED: SPIRIVA RESPIMAT IH SCH ×3 (10:00)
[2018-09-02] MEDS ORDERED: (PENDING PHARMACY ID) (Tiotropium Bromide [Spiriva Respimat] 2 PUFF) IH SCH (10:00)
[2018-09-02] MEDS ORDERED: FENOFIBRATE NANOCRYSTALLIZED 48 MG TABLET PO SCH (10:00)
[2018-09-02] MEDS ORDERED: (PENDING PHARMACY ID) (Nebivolol Hcl [Bystolic] 20 MG) PO SCH (10:00)
[2018-09-02] MEDS ORDERED: CETIRIZINE 10 MG TABLET PO SCH (10:00)
[2018-09-02] MEDS ORDERED: AMLODIPINE BESYLATE 10 MG TABLET PO SCH (10:00)
[2018-09-02] MEDS ORDERED: (PENDING PHARMACY ID) (Fenofibrate [Fenofibrate] 54 MG) PO SCH (10:00)
[2018-09-02] MEDS ORDERED: CLONIDINE HCL 0.2 MG TABLET PO SCH (10:00)
[2018-09-02] MEDS: BUDESONIDE/FORMOTEROL 160-4.5 MCG 60 PUFF/6 GM MDI IH SCH (10:36)
[2018-09-02] MEDS: OTEZLA 30 MG PO SCH (10:36)
[2018-09-02] MEDS: HYDRALAZINE HCL 25 MG TABLET PO SCH (10:38)
[2018-09-02] MEDS: FAMOTIDINE 20 MG TABLET PO SCH (10:39)
[2018-09-02] MEDS ORDERED: REGADENOSON INJ 0.4 MG/5 ML DISP.SYRIN IV ONE (10:55)
--- NOTE | 2018-09-02 12:58 | XCELERA REPORT ---
[address] [address] Transthoracic Echocardiogram Report Name: NILTON FARRELL Age: 53 yrs Gender: Male : 1965 Patient Status: Inpatient Patient Location: [address] [place], [place] [id number] Study Date: 09/01/2018 07:10 PM Height: 75 in Weight: 320 lb BSA: 2.7 m2 Procedure: A two-dimensional transthoracic echocardiogram with color flow Doppler was performed. The study was technically difficult with many images being suboptimal in quality. Reason For Study: CP, dyspnea, history of right-sided heart failure History: CP, dyspnea, history of right-sided heart failure. Ordering Physician: BRAXTON WHITNEY Performed By: Julieta Rodríguez Interpretation Summary The left ventricle is normal in size. There is mild concentric left ventricular hypertrophy. LV EF is 60% The left ventricular ejection fraction is normal. Doppler measurements suggest impaired left ventricular relaxation, which is associated with grade I/IV or mild diastolic dysfunction The left ventricular wall motion is normal. Right atrium not well visualized secondary to technical limitations The left atrial size is normal. There is no evidence of mitral valve prolapse. There is no vegetation seen on the mitral valve. There is no mitral valve stenosis. There is a trace amount of mitral regurgitation There is no aortic valve stenosis There is no LVOT obstruction. No aortic regurgitation is present. There is no tricuspid stenosis. There is a trace amount of tricuspid regurgitation Right ventricular systolic pressure is normal. RVSP is 19 mm of Hg , with RA mean of 10. There is no pulmonic valvular stenosis. There is no pulmonic valvular regurgitation. The aortic root is normal size. The inferior vena cava was not visualized There is no pericardial effusion. MMode/2D Measurements & Calculations RVDd: 2.6 cm LVIDd: 5.6 cm FS: 33.0 % Ao root diam: 3.5 cm IVSd: 1.2 cm LVIDs: 3.8 cm EDV(Teich): 156.2 ml Ao root area: 9.8 cm2 LVPWd: 1.0 cm ESV(Teich): 61.2 ml LA dimension: 3.7 cm EF(Teich): 60.8 % Doppler Measurements & Calculations MV E max mich: MV P1/2t max mich: Ao V2 max: LV V1 max P.7 cm/sec 80.5 cm/sec 107.8 cm/sec 4.0 mmHg MV A max mich: MV P1/2t: 64.7 msec Ao max P.6 mmHg LV V1 max: 83.9 cm/sec MVA(P1/2t): 3.4 cm2 100.2 cm/sec MV E/A: 0.76 MV dec slope: 364.2 cm/sec2 MV dec time: 0.32 sec PA V2 max: TR max mich: MV P1/2t-pr_phl: 95.0 cm/sec 152.0 cm/sec 64.7 msec PA max PG: TR max P.2 mmHg 3.6 mmHg Left Ventricle The left ventricle is normal in size. There is mild concentric left ventricular hypertrophy. LV EF is 60%. The left ventricular ejection fraction is normal. Doppler measurements suggest impaired left ventricular relaxation, which is associated with grade I/IV or mild diastolic dysfunction. The left ventricular wall motion is normal. There is no thrombus. Right Ventricle The right ventricle is not well visualized secondary to technical limitations. Atria Right atrium not well visualized secondary to technical limitations. The left atrial size is normal. Mitral Valve There is no evidence of mitral valve prolapse. There is no vegetation seen on the mitral valve. There is no mitral valve stenosis. There is a trace amount of mitral regurgitation. Aortic Valve There is no aortic valve stenosis. There is no LVOT obstruction. No aortic regurgitation is present. Tricuspid Valve There is no tricuspid stenosis. There is a trace amount of tricuspid regurgitation. Right ventricular systolic pressure is normal. RVSP is 19 mm of Hg , with RA mean of 10. Pulmonic Valve There is no pulmonic valvular stenosis. There is no pulmonic valvular regurgitation. Great Vessels The aortic root is normal size. The inferior vena cava was not visualized. Effusions There is no pericardial effusion. : BRAXTON WHITNEY > Daniela Delgado
--- NOTE | 2018-09-02 13:04 | DRAGON STRESS TEST REPORT ---
Intravenous Lexiscan Cardiolite stress test using single photon emmision computerized tomography. Date of procedure: 09/02/2018. Ordering Provider: Ms. Esperanza Larsen Patient's status: In Patient. Indication: Chest pain. Coronary risk factors: Age, diabetes mellitus, hypertension, dyslipidemia, and tobacco abuse disorder. Resting EKG: Sinus Rhythm. Within Normal Limits. Stress EKG: No changes of ischemia. The patient had no chest pain or discomfort, and no arrhythmias seen. Reason for termination: Protocol. Conclusions: Normal EKG and hemodynamic response to IV Lexiscan. Nuclear data: At rest the patient was 15.80 given millicuries of technetium 99m sestamibi injected intravenously. As per protocol rest non gated SPECT images were obtained. Subsequently the patient was given intravenous Lexiscan at a dose of 0.4 mg in 5 mL intravenously, followed by flush with normal saline. Subsequently the stress dose 45.3 of millicuries of technetium 99m sestamibi was injected intravenously. As per protocol stress gated images were obtained. Nuclear interpretation: Review of images showed that this is a poor quality study with motion artifact present. In spite of this all segments of the myocardium had normal perfusion at rest, and normal perfusion post stress with IV Lexiscan. All segments of the myocardium had normal motion, contraction, and thickening by gated study. T. I D. ratio was normal at 0.89. There is no transient ischemic dilatation of the left ventricle. Computer read rest, and stress left ventricular ejection fraction were 55 %, and 53 %, respectively. Visually both the stress and rest ejection fractions were normal, and greater than 55%. Conclusion: 1. There is no scintigraphic evidence of Lexiscan induced myocardial ischemia. 2. There is no scintigraphic evidence of myocardial infarction/scar. Recommendations: Aggressive risk factor modification, and treating the underlying co- morbidities. MTDD
[2018-09-02] MEDS ORDERED: IPRATROPIUM/ALBUTEROL 0.5-2.5 MG/3 ML AMPUL NEB ONE (13:23)
[2018-09-02 15:22] VITALS: BP 140/76
--- NOTE | 2018-09-04 16:53 | PDOC DISCHARGE SUMMARY ---
General - Admit/Disc Date/PCP Admission Date/Primary Care Provider: 09/01/18 15:23 ESTRELLA MARROQUIN MD Discharge Date: 09/02/18 - Discharge Diagnosis (1) Chest pain, unspecified Is this a current diagnosis for this admission?: Yes Summary: The patient presented with atypical chest pain described as right side chest pain, sharp, nonradiating, that initially resolved spontaneously after 10 minutes but continues to recur and lasting only seconds at a time. The patient does have multiple risk factors including age, male, tobacco use, obesity, hypertension, hyperlipidemia, and diabetes. Therefore he is admitted for chest pain rule out. Chest x-ray was benign. EKG demonstrated sinus bradycardia with nonspecific T wave changes to the inferior leads. He was monitored on continuous cardiac telemetry; maintaining sinus bradycardia but without other acute findings. Troponins were negative x3. Lipid panel demonstrated hypertriglyceridemia, low HDL, but acceptable LDL. TSH is normal. A1c is elevated to 8.7%. Echocardiogram was suboptimal, however, demonstrated an LVEF of 60% with grade 1 diastolic dysfunction, mild concentric LVH, trace mitral regurgitation, trace tricuspid regurgitation, and no other concerning findings. Nuclear stress test was normal. The patient's antihypertensives were continued; amlodipine, hydralazine, Bystolic, clonidine, and furosemide. Patient's fenofibrate was continued. He was placed on a daily aspirin therapy. The patient had no further episodes of chest pain. His results were reviewed; recommended follow-up with primary care provider to discuss noncardiac causes of his discomfort. Also advised the patient to establish with a local machine stacker for management of his resistant hypertension. Patient may be considered for outpatient cardiac cath if his chest pain continues. He would also benefit from an updated overnight sleep study to evaluate the effectiveness of his current BiPAP settings. Patient was advised to continue a cardiac diet to slowly increase physical activity as tolerated with goal of weight reduction. He was instructed to return to the emergency department immediately for any concerning symptoms. At time of discharge, the patient was in stable condition, asymptomatic, maintaining oxygen saturations on room air while ambulatory, with normal orthostatic vital signs. (2) Hypertension Is this a current diagnosis for this admission?: Yes Summary: Acceptable blood pressures on home medication regiment. (3) COPD (chronic obstructive pulmonary disease) Is this a current diagnosis for this admission?: Yes Summary: Stable and without exacerbation at this time. Continue home dose of Spiriva and Symbicort. Patient requested nebulizer machine and DuoNeb prescription; this was provided at discharge. No indication for antibiotic or steroid therapy. (4) MARIELENA (obstructive sleep apnea) Is this a current diagnosis for this admission?: Yes Summary: Continue home BiPAP use; recommend updating overnight sleep study. - Additional Information Resuscitation Status: Full Code Discharge Diet: Cardiac, Diabetic Discharge Activity: Activity As Tolerated, Balance Activity w/Rest, Keep Legs Elevated, Slowly Increase Activity, Weigh Daily Prescriptions: Amlodipine Besylate [Norvasc 10 mg Tablet] 10 mg PO QHS #30 tablet Aspirin [Aspirin 81 mg Chewable Tablet] 81 mg PO DAILY #90 tab.chew Ipratropium/Albuterol Sulfate [Duoneb 3 ml Ampul] 3 ml NEB RTQ6HP PRN #60 vial.neb PRN Reason: Nebivolol HCl [Bystolic 10 mg Tablet] 10 mg PO DAILY #30 tablet Nebulizer [Nebulizer Machine] 1 each MC ASDIR PRN #1 kit PRN Reason: Home Medications: Albuterol Sulfate [Proair HFA Inhalation Aerosol 8.5 gm MDI] 2 puff IH ASDIR PRN 09/01/18 Allopurinol [Zyloprim 300 mg Tablet] 300 mg PO DAILY 09/01/18 Amlodipine Besylate [Norvasc 10 mg Tablet] 10 mg PO DAILY 09/01/18 Apremilast [Otezla] 30 mg PO Q12 09/01/18 Budesonide/Formoterol Fumarate [Symbicort HFA 160-4.5 mcg Inhaler 6 gm] 2 puff IH Q12 09/01/18 Cetirizine HCl [Zyrtec 10 mg Tablet] 10 mg PO QHS 09/01/18 Clonidine HCl [Catapres 0.3 mg Tablet] 0.3 mg PO DAILY 09/01/18 Esomeprazole Magnesium [Nexium 24Hr] 20 mg PO DAILY 09/01/18 Fenofibrate 54 mg PO DAILY 09/01/18 Furosemide [Lasix 40 mg Tablet] 40 mg PO DAILY 09/01/18 Hydralazine HCl [Apresoline 25 mg Tablet] 25 mg PO BID 09/01/18 Tiotropium [place] [Spiriva Respimat] 2 puff IH DAILY 09/01/18 Acetaminophen [Tylenol 325 mg Tablet] 650 mg PO Q4HP PRN tablet 09/02/18 Amlodipine Besylate [Norvasc 10 mg Tablet] 10 mg PO QHS #30 tablet 09/02/18 Aspirin [Aspirin 81 mg Chewable Tablet] 81 mg PO DAILY #90 tab.chew 09/02/18 Ipratropium/Albuterol Sulfate [Duoneb 3 ml Ampul] 3 ml NEB RTQ6HP PRN #60 vial.neb 09/02/18 Nebivolol HCl [Bystolic 10 mg Tablet] 10 mg PO DAILY #30 tablet 09/02/18 Nebulizer [Nebulizer Machine] 1 each ASDIR PRN #1 kit 09/02/18 History of Present Illness History of Present Illness: NILTON FARRELL is a 53 year old male with a past medical history of COPD, MARIELENA, CHF, DM 2, CKD 3, hypertension, hyperlipidemia, gout who presented to the emergency department today with a an atypical chest pain lasting approximately 10 minutes, substernal described as sharp nonradiating and not associated with symptoms at the time. Says that the pain resolved after drinking water. However, he then developed intermittent shortness of breath and dizziness. He reports that since arriving to the emergency department he has noted continued intermittent sharp pains though now lasting only seconds. He denies previous history of the same; does believe he had a negative stress test [place] Not followed by local cardiology. Evaluation in the emergency department revealed CKD (creatinine of 1.58, BUN 28), minimally elevated LFTs, negative troponin, normal lipase, benign chest x- ray, and EKG demonstrating sinus bradycardia with nonspecific T wave changes to the inferior leads. He is referred to the hospitalist service for chest pain rule out. Physical Exam Vital Signs: Temp Pulse Resp BP Pulse Ox 97.7 F 71 16 141/79 H 92 09/02/18 15:16 09/02/18 15:16 09/02/18 15:16 09/02/18 15:16 09/02/18 15:16 General appearance: PRESENT: no acute distress, morbidly obese, well-developed, well-nourished Head exam: PRESENT: atraumatic, normocephalic Eye exam: PRESENT: conjunctiva pink, EOMI, PERRLA. ABSENT: scleral icterus Ear exam: PRESENT: normal external ear exam Mouth exam: PRESENT: moist, tongue midline Neck exam: ABSENT: carotid bruit, JVD, lymphadenopathy, thyromegaly Respiratory exam: PRESENT: clear to auscultation ruthann, symmetrical, unlabored. ABSENT: rales, rhonchi, wheezes Cardiovascular exam: PRESENT: RRR, +S1, +S2. ABSENT: diastolic murmur, rubs, systolic murmur Pulses: PRESENT: normal dorsalis pedis pul Vascular exam: PRESENT: normal capillary refill GI/Abdominal exam: PRESENT: normal bowel sounds, soft. ABSENT: distended, guarding, mass, organolmegaly, rebound, tenderness Rectal exam: PRESENT: deferred Extremities exam: PRESENT: full ROM. ABSENT: calf tenderness, clubbing, pedal edema Neurological exam: PRESENT: alert, awake, oriented to person, oriented to place, oriented to time, oriented to situation, CN II-XII grossly intact. ABSENT: motor sensory deficit Psychiatric exam: PRESENT: anxious, appropriate affect. ABSENT: homicidal ideation, suicidal ideation Skin exam: PRESENT: dry, intact, warm. ABSENT: cyanosis, rash Results Laboratory Results: 09/02/18 06:44 09/02/18 06:44 09/01/18 09/01/18 09/01/18 12:09 12:09 12:09 Creatine Kinase 173 H CK-MB (CK-2) 1.42 Troponin I 0.014 NT-Pro-B Natriuret Pep 92 09/01/18 09/01/18 16:46 22:40 Creatine Kinase CK-MB (CK-2) Troponin I 0.015 0.014 NT-Pro-B Natriuret Pep Impressions: Chest X-Ray 09/01/18 11:50 IMPRESSION: NO ACUTE RADIOGRAPHIC FINDING IN THE CHEST. Qualifiers - * PATIENT BEING DISCHARGED WITH ANY OF THE FOLLOWING DIAGNOSIS: No Plan Discharge Plan: Follow-up with primary care provider within 1 week. Recommend updated overnight sleep study to evaluate effectiveness thickness of current BiPAP settings. Recommend establishing with a local machine stacker; if patient continues to experience chest pain he may need to be considered for cardiac catheterization. Eat a cardiac diet and slowly increase physical activity as tolerated. Return to the emergency department as needed for concerning symptoms. Time Spent: Less than 30 Minutes
== END 2018-09-02 15:47 | disposition home or self-care (01) ==
LOC: ER 11:30 → EH 15:23 → 4N 17:48
PROVIDERS: ADMIT Internal Medicine; ATTEND Internal Medicine
DX: R07.89 Other chest pain (principal); E66.9 Obesity, unspecified; E78.5 Hyperlipidemia, unspecified; J44.9 Chronic obstructive pulmonary disease, unspecified; R00.1 Bradycardia, unspecified; G47.33 Obstructive sleep apnea (adult) (pediatric); E78.1 Pure hyperglyceridemia; I13.0 Hypertensive heart and chronic kidney disease with heart failure and stage 1 through stage 4 chronic kidney disease, or unspecified chronic kidney disease; E11.22 Type 2 diabetes mellitus with diabetic chronic kidney disease; N18.3 Chronic kidney disease, stage 3 (moderate); I50.9 Heart failure, unspecified; R42 Dizziness and giddiness; M10.9 Gout, unspecified; K21.9 Gastro-esophageal reflux disease without esophagitis; Z87.891 Personal history of nicotine dependence; Z79.899 Other long term (current) drug therapy
CPT/HCPCS: 93005; 99285; 36415 ×2; 82553; 82962 ×2; 82550; 83690; 83735; 84443; 85025; 85027; 80048; 80053; 84484; 83036; 80061; 83880; 93306; 93017; 71045; 78452; 93010; 94640 ×2; A9500; J2785; J3490 ×3; J1815 ×2; J7620 ×2; Q9969; G0378

== ENCOUNTER 2019-01-27 15:14 | Emergency (ER) | payer OTHER ==
--- NOTE | 2019-01-27 15:24 | ER Document Report ---
ED Medical Screen (RME) - General Chief Complaint: Laceration Stated Complaint: RIGHT ARM INJURY Time Seen by Provider: 01/27/19 15:22 Primary Care Provider: ESTRELLA MARROQUIN MD [NO LOCAL MD] - Follow up as needed Mode of Arrival: Ambulatory Information source: Patient Notes: 53-year-old male presented to ED for laceration to the right forearm. He states he was at work and and fell on a multi tool power tool causing a laceration to his right arm about 1330 this afternoon. He states his last tetanus was in 2013. Patient is alert oriented respirations regular and unlabored speaking in full sentences walks with a even steady gait. I have greeted and performed a rapid initial assessment of this patient. A comprehensive ED assessment and evaluation of the patient, analysis of test results and completion of medical decision making process will be conducted by an additional ED providers. Dictation of this chart was performed using voice recognition software; therefore, there may be some unintended grammatical errors. TRAVEL OUTSIDE OF THE [place] IN LAST 30 DAYS: No - Related Data Allergies/Adverse Reactions: lisinopril Allergy (Verified 01/27/19 15:17) embril Allergy (Uncoded 01/27/19 15:20) Past Medical History - Past Medical History Cardiac Medical History: Reports: Hx Congestive Heart Failure, Hx Hypercholesterolemia, Hx Hypertension Denies: Hx Coronary Artery Disease, Hx Heart Attack Pulmonary Medical History: Reports: Hx COPD, Hx Sleep Apnea Endocrine Medical History: Reports: Hx Diabetes Mellitus Type 2 Renal/ Medical History: Denies: Hx Peritoneal Dialysis GI Medical History: Reports: Hx Gastroesophageal Reflux Disease Past Surgical History: Reports: Hx Genitourinary Surgery - vasectomy, Hx Orthopedic Surgery - right finger Physical Exam - Vital signs Vitals: Temp Pulse Resp BP Pulse Ox 98.3 F 76 16 142/80 H 96 01/27/19 15:26 01/27/19 15:26 01/27/19 15:26 01/27/19 15:26 01/27/19 15:26 Course - Vital Signs Vital signs: Temp Pulse Resp BP Pulse Ox 98.3 F 76 16 142/80 H 96 01/27/19 15:26 01/27/19 15:26 01/27/19 15:26 01/27/19 15:26 01/27/19 15:26 Doctor's Discharge - Discharge Clinical Impression: Forearm laceration Condition: Good Disposition: HOME, SELF-CARE Instructions: Antibiotic Ointment Protection ([facility]), Laceration Care ([facility]), Soap Cleansing ([facility]) Additional Instructions: Sutures can be removed in 10 days. Follow-up with your primary doctor in 2 or return to the ED at any time if he see any signs of infection. We will be happy to remove the sutures for you if you prefer. Prescriptions: Amoxicillin 1 tab PO TID 5 Days #15 tab Referrals: ESTRELLA MARROQUIN MD [NO LOCAL MD] - Follow up as needed
[2019-01-27 15:28] VITALS: BP 142/80
--- NOTE | 2019-01-27 15:49 | RADIOLOGY REPORT (SQ) ---
EXAM DESCRIPTION: FOREARM RIGHT COMPLETED DATE/TIME: 01/27/2019 3:38 pm REASON FOR STUDY: Fell on a power tool laceration right forearm COMPARISON: None. NUMBER OF VIEWS: Two views. TECHNIQUE: Two radiographic images acquired of the right forearm, including elbow and wrist in at le ast one projection. LIMITATIONS: None. FINDINGS: MINERALIZATION: Normal. BONES: No acute fracture. No worrisome bone lesions. SOFT TISSUES: No obvious swelling or foreign body. OTHER: No other significant finding. IMPRESSION: No fracture or radiopaque foreign body. TECHNICAL DOCUMENTATION: JOB ID: [id number] [place]-72 2010 [employer]- All Rights Reserved Reading location - IP/workstation name: [email or web address]
[2019-01-27] MEDS ORDERED: LIDOCAINE 1% INJ-PF (10 MG/ML) 30 ML SDV INJ ONE (18:16)
--- NOTE | 2019-01-27 18:32 | ER Document Report ---
ED General - General Chief Complaint: Laceration Stated Complaint: RIGHT ARM INJURY Time Seen by Provider: 01/27/19 15:22 Primary Care Provider: ESTRELLA MARROQUIN MD [NO LOCAL MD] - Follow up as needed Mode of Arrival: Ambulatory Information source: Patient TRAVEL OUTSIDE OF THE [place] IN LAST 30 DAYS: No - HPI Patient complains to provider of: Right distal forearm laceration Onset: Just prior to arrival Onset/Duration: Sudden Quality of pain: Sharp Severity: Severe Pain Level: 4 Associated symptoms: None Exacerbated by: Denies Relieved by: Denies Similar symptoms previously: No Recently seen / treated by doctor: No Notes: 53-year-old male coming in today with distal right forearm laceration. He fell and lacerated his right distal forearm volar aspect on a multi tool and sustained a 2 cm laceration. Tdap up-to-date. - Related Data Allergies/Adverse Reactions: lisinopril Allergy (Verified 01/27/19 15:17) embril Allergy (Uncoded 01/27/19 15:20) Past Medical History - General Information source: Patient - Social History Smoking Status: Unknown if Ever Smoked Family History: Reviewed & Not Pertinent Patient has suicidal ideation: No Patient has homicidal ideation: No - Past Medical History Cardiac Medical History: Reports: Hx Congestive Heart Failure, Hx Hypercholesterolemia, Hx Hypertension Denies: Hx Coronary Artery Disease, Hx Heart Attack Pulmonary Medical History: Reports: Hx COPD, Hx Sleep Apnea Endocrine Medical History: Reports: Hx Diabetes Mellitus Type 2 Renal/ Medical History: Denies: Hx Peritoneal Dialysis GI Medical History: Reports: Hx Gastroesophageal Reflux Disease Past Surgical History: Reports: Hx Genitourinary Surgery - vasectomy, Hx Orthopedic Surgery - right finger - Immunizations Hx Pneumococcal Vaccination: 08/02/13 Review of Systems - Review of Systems Notes: Normal range of motion Physical Exam - Vital signs Vitals: Temp Pulse Resp BP Pulse Ox 98.3 F 76 16 142/80 H 96 01/27/19 15:26 01/27/19 15:26 01/27/19 15:26 01/27/19 15:26 01/27/19 15:26 - Notes Notes: General: Well-developed, well-nourished. In no acute distress. Non-toxic appearing. Cardiac: Well-perfused. Regular rate and rhythm. No murmurs, rubs, or gallops. Pulmonary: No respiratory distress. No cyanosis. Bilateral lung fiels are clear to auscultation. Abdominal: Non-distended. Non-rigid. Bowels sounds are present in all four quadrants. No guarding or rebound. HEENT: Head is atraumatic. Conjunctivae not reddened. No tearing. PERRL. EOMI. Orbits atraumatic. No periorbital swelling or erythema. Oropharynx is without erythema, swelling, or exudates. Neck: Supple. No adenopathy. No meningismus. Dermatologic: Warm with good turgor. No rash. Atraumatic. Chest: Atraumatic. No chest wall tenderness to palpation. Musculoskeletal: 2.5 cm jagged linear laceration distal right forearm volar aspect. No active bleeding. Subcutaneous involvement but not into the fascia. Genitourinary: Examination deferred Neurologic: No gross neurologic deficits. Psychiatric: Normal mood. Course - Re-evaluation Re-evalutation: 01/27/19 18:51 Patient tolerated sutures well. He has a history of psoriatic arthritis. He is on immune modulators at this time for that. We will start him on some amoxicillin 3 times a day for 7 days to prevent staph strep infection. 01/27/19 18:55 Patient's Tdap is up-to-date as of 2013 - Vital Signs Vital signs: Temp Pulse Resp BP Pulse Ox 98.3 F 76 16 142/80 H 96 01/27/19 15:26 01/27/19 15:26 01/27/19 15:26 01/27/19 15:26 01/27/19 15:26 Procedures - Laceration/Wound Repair Right forearm Time completed: 18:52 Wound length (cm): 2.5 Wound's Depth, Shape: Linear, Irregular Laceration pre-procedure: Sterile PPE donned, Sterile drapes applied, Shur-Clens applied Anesthetic type: 1% Lidocaine Volume Anesthetic (mLs): 6 Wound explored: Clean Wound Repaired With: Sutures Suture Size/Type: 4:0, Nylon Number of Sutures: 5 Layer Closure?: No Post-procedure wound care: Sterile dressing applied Post-procedure NV exam normal: Yes Complications: No Discharge - Discharge Clinical Impression: Forearm laceration Qualifiers: Encounter type: initial encounter Laterality: right Qualified Code(s): S51.811A - Laceration without foreign body of right forearm, initial encounter Condition: Good Disposition: HOME, SELF-CARE Instructions: Antibiotic Ointment Protection ([facility]), Laceration Care ([facility]), Soap Cleansing ([facility]) Additional Instructions: Sutures can be removed in 10 days. Follow-up with your primary doctor in 2 or return to the ED at any time if he see any signs of infection. We will be happy to remove the sutures for you if you prefer. Prescriptions: Amoxicillin 1 tab PO TID 5 Days #15 tab Referrals: ESTRELLA MARROQUIN MD [NO LOCAL MD] - Follow up as needed
[2019-01-27] MEDS ORDERED: HYDROCODONE/ACETAMINOPHEN 5-325 MG (6 TAB/ER DISP) PO PRN (18:53)
== END 2019-01-27 19:11 | disposition home or self-care (01) ==
LOC: ER 15:14
DX: S51.811A Laceration without foreign body of right forearm, initial encounter (principal); W01.118A Fall on same level from slipping, tripping and stumbling with subsequent striking against other sharp object, initial encounter; Y99.0 Civilian activity done for income or pay; I50.9 Heart failure, unspecified; I11.0 Hypertensive heart disease with heart failure; L40.50 Arthropathic psoriasis, unspecified; E78.00 Pure hypercholesterolemia, unspecified; J44.9 Chronic obstructive pulmonary disease, unspecified; Z98.52 Vasectomy status
CPT/HCPCS: 99283; 73090; 12001; J3490

== ENCOUNTER 2019-01-31 14:13 | Emergency (ER) | payer OTHER ==
--- NOTE | 2019-01-31 15:48 | ER Document Report ---
HPI - HPI Time Seen by Provider: 01/31/19 15:33 Pain Level: 0 Context: Patient is a 53-year-old male who presents to the emergency department with a chief complaint of erythema and purulent drainage to his right wrist from where he had his laceration repaired. He denies any fever, body aches, chills or any other symptoms. He was placed on amoxicillin. - ROS Notes: REVIEW OF SYSTEMS: CONSTITUTIONAL : Denies recent illness. Denies recent unintentional weight loss. Denies fever, chills, or sweats. EENT: Denies eye, ear, throat, or mouth pain, discharge, or symptoms. Denies nasal or sinus congestion. CARDIOVASCULAR: Denies chest pain. RESPIRATORY: Denies shortness of breath, cough, congestion, difficulty breathing, or wheezing. GASTROINTESTINAL: Denies nausea, vomiting, and diarrhea. Denies abdominal pain. Denies constipation. GENITOURINARY: Denies difficulty urinating, burning, blood in urine, urgency or frequency. MUSCULOSKELETAL: Denies neck and back pain. Denies joint pain or swelling. SKIN: See HPI HEMATOLOGIC : Denies easy bruising or bleeding. LYMPHATIC: Denies swollen, painful, enlarged glands. NEUROLOGICAL: Denies no numbness or tingling denies weakness. Denies headache. Denies altered mental status. Denies alteration in speech. PSYCHIATRIC: Denies stress, anxiety, alteration in sleep patterns, or depression. All other systems reviewed and negative. Past Medical History - Social History Smoking Status: Unknown if Ever Smoked Family History: Reviewed & Not Pertinent - Past Medical History Cardiac Medical History: Reports: Hx Congestive Heart Failure, Hx Hypercholesterolemia, Hx Hypertension Denies: Hx Coronary Artery Disease, Hx Heart Attack Pulmonary Medical History: Reports: Hx COPD, Hx Sleep Apnea Endocrine Medical History: Reports: Hx Diabetes Mellitus Type 2 Renal/ Medical History: Denies: Hx Peritoneal Dialysis GI Medical History: Reports: Hx Gastroesophageal Reflux Disease Past Surgical History: Reports: Hx Genitourinary Surgery - vasectomy, Hx Orthopedic Surgery - right finger - Immunizations Hx Pneumococcal Vaccination: 08/02/13 Vertical Provider Document - CONSTITUTIONAL Notes: PHYSICAL EXAMINATION: GENERAL: Appears well, healthy, well-nourished, no acute distress. HEAD: Normocephalic, atraumatic. EYES: PERRL, conjunctiva normal, all extraocular movements intact, sclera nonicteric ENT: Moist mucous membranes. NECK: Supple, no noticeable swelling, redness, rash. Normal range of motion. LUNGS: Equal breath sounds bilaterally and clear to auscultation. No wheezes rales or rhonchi. CARDIOVASCULAR: S1-S2, regular rate, regular rhythm. Radial pulses 2+, normal. ABDOMEN: Normoactive bowel sounds. Soft, nontender, no guarding, no rebound tenderness, and no masses palpated. EXTREMITIES: Normal strength and range of motion, no pitting or edema. No cyanosis. NEUROLOGICAL: Moves all extremities upon command. Strength 5/5 in all extremities. PSYCH: Normal mood, normal affect. SKIN: Warm, dry. Purulent drainage and erythema noted to laceration repair. Normal skin turgor. - INFECTION CONTROL TRAVEL OUTSIDE OF THE [place] IN LAST 30 DAYS: No Course - Re-evaluation Re-evalutation: 01/31/19 15:52 Patient does have some erythema noted to the suture site. I will place him on Keflex and Bactrim to help with his erythema. I have advised him to keep his wound open, so it can heal. Follow-up precautions were given. Verbal discharge instructions were given to the patient. They verbalized understanding. They are stable for discharge. - Vital Signs Vital signs: Temp Pulse Resp BP Pulse Ox 98.8 F 81 18 174/76 H 93 01/31/19 14:21 01/31/19 14:21 01/31/19 14:21 01/31/19 14:21 01/31/19 14:21 Discharge - Discharge Clinical Impression: Encounter for wound re-check Cellulitis Qualifiers: Site of cellulitis: extremity Site of cellulitis of extremity: upper extremity Laterality: right Qualified Code(s): L03.113 - Cellulitis of right upper limb Condition: Stable Disposition: HOME, SELF-CARE Additional Instructions: You were seen today in the emergency department for a wound recheck. The wound is healing, but there is some cellulitis to the area. Please stop taking your amoxicillin and take the 2 antibiotics that are being prescribed to you. Please keep your wound open to air. Follow-up with the [facility], [facility], or the emergency department for suture removal. Prescriptions: Cephalexin Monohydrate [Keflex 500 mg Capsule] 500 mg PO Q6H 7 Days #28 capsule Sulfamethoxazole/Trimethoprim [Bactrim Ds Tablet] 1 each PO BID 7 Days #14 tablet Forms: Return to Work
[2019-01-31 16:10] VITALS: BP 155/81
== END 2019-01-31 16:10 | disposition home or self-care (01) ==
LOC: ER 14:13
DX: L03.113 Cellulitis of right upper limb (principal); S61.511A Laceration without foreign body of right wrist, initial encounter; X58.XXXA Exposure to other specified factors, initial encounter; E11.9 Type 2 diabetes mellitus without complications; I10 Essential (primary) hypertension; J44.9 Chronic obstructive pulmonary disease, unspecified
CPT/HCPCS: 99282

== ENCOUNTER 2019-02-06 19:29 | Emergency (ER) | payer OTHER ==
[2019-02-06 19:43] VITALS: BP 121/72
--- NOTE | 2019-02-06 19:54 | ER Document Report ---
HPI - HPI Patient complains to provider of: suture removal Time Seen by Provider: 02/06/19 19:47 Onset: Other - 10 days Quality of pain: No pain Pain Level: Denies Context: Patient presents for suture removal to right forearm. Patient had 5 sutures placed 10 days ago. Patient states that he has been taking antibiotics as prescribed. Patient denies any fever or purulent drainage. Associated Symptoms: denies: Fever Exacerbated by: Denies Relieved by: Denies Similar symptoms previously: No Recently seen / treated by doctor: Yes - ROS ROS below otherwise negative: Yes Systems Reviewed and Negative: Yes All other systems reviewed and negative - CONSTITUTIONAL Constitutional: DENIES: Fever, Chills - DERM Skin Color: Erythema Skin Problems: Laceration Past Medical History - General Information source: Patient - Social History Smoking Status: Never Smoker Lives with: Family Family History: Reviewed & Not Pertinent - Past Medical History Cardiac Medical History: Reports: Hx Congestive Heart Failure, Hx Hypercholesterolemia, Hx Hypertension Pulmonary Medical History: Reports: Hx COPD, Hx Sleep Apnea Endocrine Medical History: Reports: Hx Diabetes Mellitus Type 2 Renal/ Medical History: Denies: Hx Peritoneal Dialysis GI Medical History: Reports: Hx Gastroesophageal Reflux Disease Past Surgical History: Reports: Hx Genitourinary Surgery - vasectomy, Hx Orthopedic Surgery - right finger - Immunizations Hx Pneumococcal Vaccination: 08/02/13 Vertical Provider Document - CONSTITUTIONAL Agree With Documented VS: Yes Exam Limitations: No Limitations - INFECTION CONTROL TRAVEL OUTSIDE OF THE [place] IN LAST 30 DAYS: No - HEENT HEENT: Atraumatic, Normocephalic - NECK Neck: Normal Inspection - RESPIRATORY Respiratory: No Respiratory Distress - CARDIOVASCULAR Pulses: Normal: Radial - MUSCULOSKELETAL/EXTREMETIES Musculoskeletal/Extremeties: MAEW - NEURO Level of Consciousness: Awake, Alert, Appropriate - DERM Integumentary: Warm, Dry, Laceration - Sutured laceration to right forearm, no erythema surrounding sutures. No lymphangitis Course - Re-evaluation Re-evalutation: 02/06/19 19:53 Suspect erythema surrounding wound is attributed to the suture material itself. No purulent drainage, no concern for infection at this time. Patient is already taking Keflex and Bactrim at this time. - Vital Signs Vital signs: Temp Pulse Resp BP Pulse Ox 98.0 F 67 18 121/72 93 02/06/19 19:36 02/06/19 19:36 02/06/19 19:36 02/06/19 19:36 02/06/19 19:36 Discharge - Discharge Clinical Impression: Encounter for removal of sutures Condition: Stable Disposition: HOME, SELF-CARE Instructions: Suture Removal Additional Instructions: Return immediately for any new or worsening symptoms Followup with your primary care provider as needed for recheck
== END 2019-02-06 20:00 | disposition home or self-care (01) ==
LOC: ER 19:29
DX: S51.811D Laceration without foreign body of right forearm, subsequent encounter (principal); X58.XXXD Exposure to other specified factors, subsequent encounter; E11.9 Type 2 diabetes mellitus without complications; I10 Essential (primary) hypertension; J44.9 Chronic obstructive pulmonary disease, unspecified
CPT/HCPCS: 99281

== ENCOUNTER 2019-04-12 15:07 | Emergency (ER) | payer OTHER ==
[2019-04-12] MEDS ORDERED: HYDROCODONE/ACETAMINOPHEN 5-325 MG TABLET PO ONE (16:56)
--- NOTE | 2019-04-12 17:28 | RADIOLOGY REPORT (SQ) ---
EXAM DESCRIPTION: KNEE LEFT 4 VIEW COMPLETED DATE/TIME: 04/12/2019 5:19 pm REASON FOR STUDY: left knee pain COMPARISON: None. EXAM PARAMETERS: NUMBER OF VIEWS: Four views. TECHNIQUE: AP, lateral and oblique radiographic images acquired of the left knee. LIMITATIONS: None. FINDINGS: MINERALIZATION: Normal. BONES: No acute fracture or dislocation. No worrisome bone lesions. JOINTS: No effusion. SOFT TISSUES: No significant soft tissue swelling. No radiopaque foreign body. OTHER: No other significant finding. IMPRESSION: NO FRACTURE. TECHNICAL DOCUMENTATION: JOB ID: [id number] [place]-72 2010 [employer]- All Rights Reserved Reading location - IP/workstation name: [email or web address]
--- NOTE | 2019-04-12 17:55 | ER Document Report ---
HPI - HPI Patient complains to provider of: left knee pain Time Seen by Provider: 04/12/19 16:49 Onset: Other - 3 mo Onset/Duration: Persistent Quality of pain: Achy Pain Level: 4 Context: Patient presents complaining of left medial knee pain for the past 3 months. 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 Patient states he had persistent pain since then. Patient states knee will occasionally feel as though it gives out. Pt does have a history of psoriatic arthritis but states that he has had good control of his arthritic pain with his current medications. Associated Symptoms: Other - Left knee pain Exacerbated by: Standing, Movement, Walking Relieved by: Denies Similar symptoms previously: No Recently seen / treated by doctor: No - ROS ROS below otherwise negative: Yes Systems Reviewed and Negative: Yes All other systems reviewed and negative - CONSTITUTIONAL Constitutional: DENIES: Fever, Chills - NEURO Neurology: DENIES: Weakness - MUSCULOSKELETAL Musculoskeletal: REPORTS: Extremity pain - L knee. 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 Family History: Reviewed & Not Pertinent Patient has suicidal ideation: No Patient has homicidal ideation: No - Past Medical History Cardiac Medical History: Reports: Hx Congestive Heart Failure, Hx Hypercholesterolemia, Hx Hypertension Pulmonary Medical History: Reports: Hx COPD, Hx Sleep Apnea Endocrine Medical History: Reports: Hx Diabetes Mellitus Type 2 Renal/ Medical History: Denies: Hx Peritoneal Dialysis GI Medical History: Reports: Hx Gastroesophageal Reflux Disease Past Surgical History: Reports: Hx Genitourinary Surgery - vasectomy, Hx Orthopedic Surgery - right finger - Immunizations Hx Pneumococcal Vaccination: 08/02/13 Vertical Provider Document - CONSTITUTIONAL Agree With Documented VS: Yes Exam Limitations: No Limitations General Appearance: WD/WN, No Apparent Distress - INFECTION CONTROL TRAVEL OUTSIDE OF THE [place] IN LAST 30 DAYS: No - HEENT HEENT: Atraumatic, Normocephalic - NECK Neck: Normal Inspection, Supple - RESPIRATORY Respiratory: Breath Sounds Normal, No Respiratory Distress - CARDIOVASCULAR Cardiovascular: Regular Rate, Regular Rhythm Pulses: Normal: Posterior tibial - MUSCULOSKELETAL/EXTREMETIES Musculoskeletal/Extremeties: MAEW, FROM, Tender - Left knee joint tenderness to medial compartment and joint line, no effusion. No laxity with varus or valgus maneuvers. Normal skin color and temperature to left knee joint., No Edema. negative: Eccymosis - NEURO Level of Consciousness: Awake, Alert, Appropriate Motor/Sensory: No Motor Deficit, No Sensory Deficit - DERM Integumentary: Warm, Dry, No Rash Course - Re-evaluation Re-evalutation: 04/12/19 Patient without any acute injury noted on x-ray. No concern for septic arthrit is. No concern for fracture or dislocation. Patient does have a history of psoriatic arthritis as well as morbid obesity. Discussed with patient concern about flareup of his arthritis in the setting of his obesity. Patient does report that pain symptoms started after working on tile inez. Patient encouraged to follow-up with his primary doctor orthopedics for further evaluation. - Vital Signs Vital signs: Temp Pulse Resp BP Pulse Ox 98.0 F 71 18 152/88 H 95 04/12/19 16:56 04/12/19 16:56 04/12/19 16:56 04/12/19 16:56 04/12/19 16:56 - Diagnostic Test Radiology reviewed: Image reviewed, Reports reviewed Procedures - Immobilization Left Knee Pre-Proc Neuro Vasc Exam: Normal Immobilizer type: Knee immobilizer Performed by: PCT Post-Proc Neuro Vasc Exam: Normal Alignment checked and good: Yes Discharge - Discharge Clinical Impression: Psoriatic arthritis Left knee pain Qualifiers: Chronicity: acute Qualified Code(s): M25.562 - Pain in left knee Condition: Stable Disposition: HOME, SELF-CARE Instructions: Use of Crutches ([facility]), Suspected Internal Knee Injury ([facility]), Knee Immobilizing Splint ([facility]) Additional Instructions: Return immediately for any new or worsening symptoms Followup with your primary care provider, call tomorrow to make a followup appointment Follow-up with orthopedics for further evaluation, call tomorrow for an appointment take your pain medication you have at home as prescribed Forms: Return to Work Referrals: JERRY SIM DO [Primary Care Provider] - Follow up as needed [facility] [Provider Group] - Follow up as needed ROSHAN CODY JR, DO [ACTIVE PROVISIONAL STAFF] - Follow up as needed
[2019-04-12 18:16] VITALS: BP 174/93
== END 2019-04-12 18:20 | disposition home or self-care (01) ==
LOC: ER 15:07
DX: L40.50 Arthropathic psoriasis, unspecified (principal); M25.562 Pain in left knee; I50.9 Heart failure, unspecified; I11.0 Hypertensive heart disease with heart failure; J44.9 Chronic obstructive pulmonary disease, unspecified; E11.9 Type 2 diabetes mellitus without complications
CPT/HCPCS: 99283; 73564; L1830

== ENCOUNTER 2019-04-24 16:18 | Emergency (ER) | payer OTHER ==
[2019-04-24] MEDS ORDERED: NORMAL SALINE 1000 ML 1,000 ML IV ONE ×2 (16:48→18:40)
--- NOTE | 2019-04-24 16:49 | ER Document Report ---
ED Medical Screen (RME) - General Chief Complaint: High Blood Sugar Stated Complaint: DIZZINESS Time Seen by Provider: 04/24/19 16:41 Primary Care Provider: JERRY SIM DO [Primary Care Provider] - Follow up as needed Notes: 54-year-old male with hypertension, psoriatic arthritis, [id number] diabetes mellitus, gout, sleep apnea presents to the emergency department for high blood sugar problem. Patient states his fasting glucose was over 300 and then when he rechecked it in the afternoon he was 510. He called the specialist to his managing his meds recommend he come to the emergency department for evaluation. Patient does not have a primary care provider at this time. Exam: Well-appearing in no acute distress, lungs are clear to auscultation in all jorge, regular cardiac rate and rhythm I have greeted and performed a rapid initial assessment of this patient. A comprehensive ED assessment and evaluation of the patient, analysis of test results and completion of medical decision making process will be conducted by an additional ED providers. TRAVEL OUTSIDE OF THE [place] IN LAST 30 DAYS: No - Related Data Allergies/Adverse Reactions: lisinopril Allergy (Verified 04/12/19 15:07) embril Allergy (Uncoded 04/12/19 15:07) Past Medical History - Past Medical History Cardiac Medical History: Reports: Hx Congestive Heart Failure, Hx Hypercholesterolemia, Hx Hypertension Denies: Hx Coronary Artery Disease, Hx Heart Attack Pulmonary Medical History: Reports: Hx COPD, Hx Sleep Apnea Endocrine Medical History: Reports: Hx Diabetes Mellitus Type 2 Renal/ Medical History: Denies: Hx Peritoneal Dialysis GI Medical History: Reports: Hx Gastroesophageal Reflux Disease Past Surgical History: Reports: Hx Genitourinary Surgery - vasectomy, Hx Orthopedic Surgery - right finger Physical Exam - Vital signs Vitals: Temp Pulse Resp BP Pulse Ox 98.0 F 65 15 156/89 H 96 04/24/19 16:25 04/24/19 16:25 04/24/19 16:25 04/24/19 16:25 04/24/19 16:25 Course - Vital Signs Vital signs: Temp Pulse Resp BP Pulse Ox 98.0 F 65 15 156/89 H 96 04/24/19 16:25 04/24/19 16:25 04/24/19 16:25 04/24/19 16:25 04/24/19 16:25 Doctor's Discharge - Discharge Referrals: JERRY SIM, [Primary Care Provider] - Follow up as needed
[2019-04-24 17:43] LABS: ABSOLUTE EOSINOPHILS # (AUTO) 0.2 10^3/uL (0.0-0.6); ABSOLUTE LYMPHOCYTES (AUTO) 1.5 10^3/uL (0.5-4.7); ABSOLUTE MONOCYTES (AUTO) 0.5 10^3/uL (0.1-1.4); BASOPHILS % (AUTO) 0.4 % (0-2); EOSINOPHILS % (AUTO) 2.7 % (0-6); HEMATOCRIT 39.9 % (37.9-51.0); LYMPHOCYTES % (AUTO) 24.2 % (13-45); MEAN CORPUSCULAR HEMOGLOBIN 31.1 pg (27.0-33.4); MEAN CORPUSCULAR VOLUME 89 fl (80-97); MONOCYTES % (AUTO) 7.6 % (3-13); PLATELET COUNT 208 10^3/uL (150-450); RED BLOOD COUNT 4.49 10^6/uL (4.35-5.55); RED CELL DISTRIBUTION WIDTH 14.8 % (11.5-14.0); SEGMENTED NEUTROPHILS % (AUTO) 65.1 % (42-78); TOTAL CELLS COUNTED % (AUTO) 100 %; WHITE BLOOD COUNT 6.2 10^3/uL (4.0-10.5)
[2019-04-24 17:48] LABS: APPEARANCE,URINE CLEAR; BILIRUBIN,URINE NEGATIVE (NEGATIVE); COLOR,URINE YELLOW; GLUCOSE, URINE >=500 mg/dL (NEGATIVE); KETONES,URINE NEGATIVE (NEGATIVE); LEUKOCYTE ESTERASE,URINE NEGATIVE (NEGATIVE); NITRITE,URINE NEGATIVE (NEGATIVE); PROTEIN,URINE 100 mg/dL (NEGATIVE); URINE SPECIFIC GRAVITY 1.014; UROBILINOGEN,URINE NEGATIVE mg/dL (<2.0)
[2019-04-24 18:07] LABS: ALKALINE PHOSPHATASE 144 U/L (38-126); ANION GAP 12 (5-19); ASPARTATE AMINO TRANSFERASE 68 U/L (17-59); BILIRUBIN,DIRECT 0.3 mg/dL (0.0-0.4); BILIRUBIN,TOTAL 0.8 mg/dL (0.2-1.3); BLOOD UREA NITROGEN 24 mg/dL (7-20); CALCIUM 9.5 mg/dL (8.4-10.2); CARBON DIOXIDE 24 mmol/L (22-30); CHLORIDE 97 mmol/L (98-107); POTASSIUM 4.5 mmol/L (3.6-5.0); TOTAL PROTEIN 6.7 g/dL (6.3-8.2)
--- NOTE | 2019-04-24 18:14 | ER Document Report ---
ED General - General Chief Complaint: High Blood Sugar Stated Complaint: DIZZINESS Time Seen by Provider: 04/24/19 16:41 Primary Care Provider: JERRY SIM DO [NO LOCAL MD] - Follow up tomorrow TRAVEL OUTSIDE OF THE [place] IN LAST 30 DAYS: No - HPI Notes: Patient is a 54-year-old male with a history of emphysema, CKD, hypertension, psoriatic arthritis, type 2 diabetes, gout, sleep apnea who presents complaining of fatigue with a mild headache and elevated glucose over 500. Patient states that it is never been that high before. His original fasting glucose was 300 this morning. The glucose is why he his here today per patient. COLLINS is not the worst of his life and did not reach maximal intensity immediately. Patient states that he did feel a slight sharp pain to his epigastrium/lower chest area that lasted for a few seconds then went away this afternoon. Patient states that he normally has swelling to his lower extremities with the left being more than the right chronically. Patient states that he has been taking his 10 mg of glipizide every morning for the past 4 days, and was taken off of metformin previously because of kidney issues. He has never been in DKA or hospitalized for his glucose. He is able to eat and drink without difficulty. He is having normal bowel movements. Denies any fever, head injury, neck pain, changes in vision/speech/mentation/hearing, URI, sore throat, palpitations, syncope, cough, shortness of breath, wheeze, dyspnea, nausea/vomiting/diarrhea, urinary retention, dysuria, hematuria, loss of control of bowel or bladder, numbness/tingling, saddle anesthesia, muscle paralysis/weakness, or rash. - Related Data Allergies/Adverse Reactions: lisinopril Allergy (Verified 04/12/19 15:07) embril Allergy (Uncoded 04/12/19 15:07) Past Medical History - Social History Smoking Status: Former Smoker Family History: Reviewed & Not Pertinent Patient has suicidal ideation: No Patient has homicidal ideation: No - Past Medical History Cardiac Medical History: Reports: Hx Congestive Heart Failure, Hx Hypercholesterolemia, Hx Hypertension Denies: Hx Coronary Artery Disease, Hx Heart Attack Pulmonary Medical History: Reports: Hx COPD, Hx Sleep Apnea Endocrine Medical History: Reports: Hx Diabetes Mellitus Type 2 Renal/ Medical History: Denies: Hx Peritoneal Dialysis GI Medical History: Reports: Hx Gastroesophageal Reflux Disease Past Surgical History: Reports: Hx Genitourinary Surgery - vasectomy, Hx Orthopedic Surgery - right finger - Immunizations Hx Pneumococcal Vaccination: 08/02/13 Review of Systems - Review of Systems -: Yes All other systems reviewed and negative Physical Exam - Vital signs Vitals: Temp Pulse Resp BP Pulse Ox 98.0 F 65 15 156/89 H 96 04/24/19 16:25 04/24/19 16:25 04/24/19 16:25 04/24/19 16:25 04/24/19 16:25 - Notes Notes: PHYSICAL EXAMINATION: GENERAL: Well-appearing, well-nourished and in no acute distress. A&Ox4. Answers questions appropriately. HEAD: Atraumatic, normocephalic. Non-tender. EYES: Pupils equal round and reactive to light, extraocular movements intact, sclera anicteric, conjunctiva are normal. No nystagmus. vis jorge intact. ENT: Nares patent and without discharge. oropharynx clear without exudates. No tonsilar hypertrophy or erythema. Moist mucous membranes. NECK: Normal range of motion, supple without lymphadenopathy. No rigidity/meningismus. No midline tenderness. LUNGS: Breath sounds clear to auscultation bilaterally and equal. No wheezes rales or rhonchi. HEART: Regular rate and rhythm without murmurs, rubs, gallops. ABDOMEN: Soft, nontender, nondistended abdomen. No guarding, no rebound. Normal bowel sounds present. No CVA tenderness bilaterally. Musculoskeletal: Ext b/l: FROM to passive/active. Strength 5+/5. No deficits noted. No bony tenderness of extremities. Extremities: 1+ pitting edema b/l LE's. Peripheral pulses 2+. Capillary refill less than 2 seconds. NEUROLOGICAL: NIH 0. GCS 15. Cranial nerves grossly intact. Normal speech, normal gait. Normal sensory, motor exams. Reflexes 2+ b/l. PSYCH: Normal mood, normal affect. SKIN: Warm, Dry, normal turgor, no rashes or lesions noted. Course - Re-evaluation Re-evalutation: 04/24/19 Patient is an afebrile, well-hydrated, 54-year-old male who presents with elevated glucose, mild headache that is improved with Tylenol, fluids, and small dose of subcutaneous insulin. Vitals are acceptable without significant tachycardia, tachypnea, or hypoxia. PE is otherwise unremarkable for any focal neurological deficits. Patient is nontoxic-appearing and is able to tolerate p.o. without difficulty. Patient states that he is feeling better than he was. Labs are acceptable and at or near baseline aside from the elevated glucose. Cardiac enzymes unremarkable. Chest x-ray unremarkable. No further work-up warranted at this time. Patient has a capability to monitor his glucose closely at home. Low suspicion/risk for acute intercranial pathology, DKA, HHS, acute appendicitis, bowel obstruction, acute cholecystitis, perforated diverticulitis, incarcerated hernia, pancreatitis, perforated ulcer, peritonitis, sepsis, or other systemic emergent condition at this time. Patient is aware that his condition can change from initial presentation and he needs to monitor symptoms closely and seek medical attention if any acute changes. Conservative measures otherwise for symptoms. Recheck with PCM in 1-2 days, worst case call them tomorrow. Return to the ED with any worsening/concerning symptoms otherwise as reviewed in discharge. Patient is in agreement. - Vital Signs Vital signs: Temp Pulse Resp BP Pulse Ox 98.0 F 65 19 156/89 H 95 04/24/19 16:25 04/24/19 16:25 04/24/19 17:32 04/24/19 16:25 04/24/19 17:32 - Laboratory Result Diagrams: 04/24/19 17:11 04/24/19 17:11 Laboratory results interpreted by me: 04/24/19 04/24/19 04/24/19 17:11 17:11 17:11 RDW 14.8 H Sodium 132.9 L Chloride 97 L BUN 24 H Creatinine 1.44 H Est GFR (MDRD) Non-Af 51 L Glucose 479 H* POC Glucose AST 68 H Alkaline Phosphatase 144 H Urine Protein 100 H Urine Glucose (UA) >=500 H 04/24/19 19:29 RDW Sodium Chloride BUN Creatinine Est GFR (MDRD) Non-Af Glucose POC Glucose 388 H AST Alkaline Phosphatase Urine Protein Urine Glucose (UA) Discharge - Discharge Clinical Impression: Elevated glucose Headache Qualifiers: Headache type: unspecified Headache chronicity pattern: acute headache Intractability: not intractable Qualified Code(s): R51 - Headache Condition: Stable Disposition: HOME, SELF-CARE Additional Instructions: Maintain adequate fluid and food intake Take home medications as directed Low sugar/carb diet Monitor blood glucose 1-2x/day and keep a log Monitor symptoms for any acute changes Recheck with your PCM in 1-2 days, and at worst--call them tomorrow Return to the ED with any worsening symptoms and/or development of fever, headache, chest pain, palpitations, syncope, shortness of breath, trouble breathing, abdominal pain, n/v/d, blood in stool/urine, loss of control of bowel/bladder, urinary retention, muscle weakness/paralysis, numbness/tingling, or other worsening symptoms that are concerning to you. Forms: Elevated Blood Pressure Referrals: JERRY SIM DO [NO LOCAL MD] - Follow up tomorrow
[2019-04-24 18:18] LABS: GLUCOSE 479 mg/dL (75-110)
[2019-04-24 18:38] LABS: TROPONIN I 0.015 ng/mL
[2019-04-24] MEDS ORDERED: INSULIN REG, HUMAN 100 UNIT/ML 3 ML VIAL (PYX) SUBCUT ONE (18:39)
[2019-04-24] MEDS ORDERED: ACETAMINOPHEN 325 MG TABLET PO ONE (18:43)
--- NOTE | 2019-04-24 19:02 | RADIOLOGY REPORT (SQ) ---
EXAM DESCRIPTION: CHEST SINGLE VIEW COMPLETED DATE/TIME: 04/24/2019 6:46 pm REASON FOR STUDY: epigastric pain COMPARISON: 11/24/2018 EXAM PARAMETERS: NUMBER OF VIEWS: One view. TECHNIQUE: Single frontal radiographic view of the chest acquired. RADIATION DOSE: NA LIMITATIONS: None. FINDINGS: LUNGS AND PLEURA: Minimal atelectasis at the right base. Left lung is clear. MEDIASTINUM AND HILAR STRUCTURES: No masses. Contour normal. HEART AND VASCULAR STRUCTURES: Heart normal in size. Normal vasculature. BONES: No acute findings. HARDWARE: None in the chest. OTHER: No other significant finding. IMPRESSION: Right basilar atelectasis. TECHNICAL DOCUMENTATION: JOB ID: [id number]- All Rights Reserved Reading location - IP/workstation name: [email or web address]
[2019-04-24 20:56] VITALS: BP 170/91
--- NOTE | 2019-04-24 22:30 | EKG REPORT ---
SEVERITY:- BORDERLINE ECG - SINUS RHYTHM BORDERLINE R WAVE PROGRESSION, ANTERIOR LEADS : Confirmed by: Tina Cordero 24-Apr-2019 22:30:24
== END 2019-04-24 20:53 | disposition home or self-care (01) ==
LOC: ER 16:18
DX: E11.65 Type 2 diabetes mellitus with hyperglycemia (principal); R51 Headache; R42 Dizziness and giddiness; R53.83 Other fatigue; I13.0 Hypertensive heart and chronic kidney disease with heart failure and stage 1 through stage 4 chronic kidney disease, or unspecified chronic kidney disease; E11.22 Type 2 diabetes mellitus with diabetic chronic kidney disease; N18.9 Chronic kidney disease, unspecified; I50.9 Heart failure, unspecified; Z87.891 Personal history of nicotine dependence; J44.9 Chronic obstructive pulmonary disease, unspecified
CPT/HCPCS: 93005; 99284; 96360; 96361; 36415; 82962; 85025; 80053; 81001; 84484; 83880; 71045; 93010; J1815; J7030

== ENCOUNTER 2019-09-25 09:13 | Inpatient (IN) | payer BC, OTHER ==
--- NOTE | 2019-09-25 09:51 | ER Document Report ---
ED Medical Screen (RME) - General Chief Complaint: Blood Pressure Problem Stated Complaint: BLOOD PRESSURE PROBLEMS Time Seen by Provider: 09/25/19 09:45 TRAVEL OUTSIDE OF THE [place] IN LAST 30 DAYS: No - HPI Notes: 09/25/19 09:49 Patient is a 54-year-old male with a history of emphysema, CKD, hypertension, psoriatic arthritis, type 2 diabetes, gout, sleep apnea presents complaining of having elevated blood glucose 180s over 120s this morning. Patient states that during this time he felt chest pain, palpitations, left arm heaviness, and dizziness. Patient states that he does continue to have tightness in his chest and dizziness. Patient indicates that he did have an MRI a couple weeks ago of his head which told him he had an old stroke. Pt states he has been feeling this way since last night. No fever or URI. No abdominal pain. I have treated and performed a rapid initial assessment of this patient. A comprehensive ED assessment and evaluation of the patient, analysis of test results and completion of medical decision making process will be conducted by additional ED providers. PHYSICAL EXAMINATION: GENERAL: Well-appearing, well-nourished and in no acute distress. A&Ox4. Answe rs questions appropriately. Eyes: PERRLA, EOMI bilaterally Heart: RRR Lungs: Grossly CTAB Extremities: No edema Neuro: NIH 0, GCS 15, cranial nerves grossly intact - Related Data Allergies/Adverse Reactions: lisinopril Allergy (Verified 04/12/19 15:07) embril Allergy (Uncoded 04/12/19 15:07) Past Medical History - Past Medical History Cardiac Medical History: Reports: Hx Congestive Heart Failure, Hx Hypercholesterolemia, Hx Hypertension Denies: Hx Coronary Artery Disease, Hx Heart Attack Pulmonary Medical History: Reports: Hx COPD, Hx Sleep Apnea Endocrine Medical History: Reports: Hx Diabetes Mellitus Type 2 Renal/ Medical History: Denies: Hx Peritoneal Dialysis GI Medical History: Reports: Hx Gastroesophageal Reflux Disease Past Surgical History: Reports: Hx Genitourinary Surgery - vasectomy, Hx Orthopedic Surgery - right finger Physical Exam - Vital signs Vitals: Temp Pulse Resp BP Pulse Ox 98.1 F 78 19 169/81 H 96 09/25/19 09:29 09/25/19 09:29 09/25/19 09:29 09/25/19 09:29 02/24/20 09:29 Course - Vital Signs Vital signs: Temp Pulse Resp BP Pulse Ox 98.1 F 78 19 169/81 H 96 09/25/19 09:29 09/25/19 09:29 09/25/19 09:29 09/25/19 09:29 09/25/19 09:29
[2019-09-25 10:29] LABS: ABSOLUTE LYMPHOCYTES (AUTO) 1.4 10^3/uL (0.5-4.7); ABSOLUTE MONOCYTES (AUTO) 0.7 10^3/uL (0.1-1.4); BASOPHILS % (AUTO) 0.3 % (0-2); EOSINOPHILS % (AUTO) 0.4 % (0-6); HEMATOCRIT 43.4 % (37.9-51.0); HEMOGLOBIN 14.9 g/dL (13.5-17.0); LYMPHOCYTES % (AUTO) 16.8 % (13-45); MEAN CORPUSCULAR HGB CONC 34.4 g/dL (32.0-36.0); MEAN CORPUSCULAR VOLUME 90 fl (80-97); MONOCYTES % (AUTO) 8.9 % (3-13); PLATELET COUNT 194 10^3/uL (150-450); RED BLOOD COUNT 4.82 10^6/uL (4.35-5.55); RED CELL DISTRIBUTION WIDTH 15.5 % (11.5-14.0); SEGMENTED NEUTROPHILS % (AUTO) 73.6 % (42-78); TOTAL CELLS COUNTED % (AUTO) 100 %; WHITE BLOOD COUNT 8.1 10^3/uL (4.0-10.5)
--- NOTE | 2019-09-25 10:30 | RADIOLOGY REPORT (SQ) ---
EXAM DESCRIPTION: CHEST 2 VIEWS COMPLETED DATE/TIME: 09/25/2019 10:19 am REASON FOR STUDY: CP COMPARISON: AP view of the chest from 04/24/2019. EXAM PARAMETERS: NUMBER OF VIEWS: Two views. TECHNIQUE: PA and lateral views of the chest were obtained.. RADIATION DOSE: NA LIMITATIONS: none FINDINGS: LUNGS AND PLEURA: No consolidation, pleural effusion or pneumothorax. MEDIASTINUM AND HILAR STRUCTURES: No mediastinal or hilar contour abnormality. HEART AND VASCULAR STRUCTURES: The cardiac silhouette and pulmonary vasculature are within normal bhatt its. BONES: No acute findings. HARDWARE: None in the chest. OTHER: No other finding. IMPRESSION: No acute cardiopulmonary process. TECHNICAL DOCUMENTATION: JOB ID: [id number] 2010 [employer]- All Rights Reserved Reading location - IP/workstation name: [email or web address]
[2019-09-25 10:33] LABS: APPEARANCE,URINE CLEAR; BILIRUBIN,URINE NEGATIVE (NEGATIVE); COLOR,URINE STRAW; GLUCOSE, URINE >=500 mg/dL (NEGATIVE); KETONES,URINE NEGATIVE (NEGATIVE); PROTEIN,URINE 100 mg/dL (NEGATIVE); UROBILINOGEN,URINE NEGATIVE mg/dL (<2.0)
[2019-09-25 10:50] LABS: ALBUMIN 4.1 g/dL (3.5-5.0); ALKALINE PHOSPHATASE 97 U/L (38-126); ANION GAP 11 (5-19); ASPARTATE AMINO TRANSFERASE 44 U/L (17-59); BILIRUBIN,TOTAL 0.6 mg/dL (0.2-1.3); BLOOD UREA NITROGEN 29 mg/dL (7-20); CALCIUM 9.4 mg/dL (8.4-10.2); CARBON DIOXIDE 24 mmol/L (22-30); CHLORIDE 99 mmol/L (98-107); POTASSIUM 4.2 mmol/L (3.6-5.0); TOTAL PROTEIN 6.9 g/dL (6.3-8.2)
--- NOTE | 2019-09-25 10:54 | RADIOLOGY REPORT (SQ) ---
EXAM DESCRIPTION: CT HEAD WITHOUT COMPLETED DATE/TIME: 09/25/2019 10:27 am REASON FOR STUDY: dizziness COMPARISON: None. TECHNIQUE: Axial images acquired through the brain without intravenous contrast. Images reviewed wi th bone, brain and subdural windows. Additional sagittal and coronal reconstructions were generated. Images stored on PACS. All CT scanners at this facility use dose modulation, iterative reconstruction, and/or weight based d osing when appropriate to reduce radiation dose to as low as reasonably achievable (ALARA). [facility]: Dose Right [facility]: CareDose [facility]: Dose Right [facility]: Teradose 4D [facility]: [facility] RADIATION DOSE: CT Rad equipment meets quality standard of care and radiation dose reduction techniq ues were employed. CTDIvol: 53.2 mGy. DLP: 1124 mGy-cm. LIMITATIONS: None. FINDINGS: There is no acute intracranial hemorrhage, vascular territorial infarct, extra-axial fluid collection, mass effect or midline shift. There is no effacement of the cerebral sulci or basal sub arachnoid cisterns. The golden-white matter differentiation is preserved. The caliber the ventricles is concordant with the degree of sulcation. There is a mucous retention cyst within the left maxillary sinus. The orbits and globes are intact. There is no fracture of the calvarium. There is a fat attenuation subcutaneous lesion over the left frontal bone that measures 2.3 x 0.8 cm. IMPRESSION: No acute intracranial abnormality. EVIDENCE OF ACUTE STROKE: NO. COMMENT: Quality ID # [id number]: Final reports with documentation of one or more dose reduction techniques (e.g., Automated exposure control, adjustment of the mA and/or kV according to patient size, use of iterative reconstruction technique) TECHNICAL DOCUMENTATION: JOB ID: [id number] 2010 [employer]- All Rights Reserved Reading location - IP/workstation name: [email or web address]
[2019-09-25 10:58] LABS: GLUCOSE 414 mg/dL (75-110)
--- NOTE | 2019-09-25 12:19 | ER Document Report ---
ED General - General Chief Complaint: High Blood Pressure Stated Complaint: BLOOD PRESSURE PROBLEMS Time Seen by Provider: 09/25/19 09:45 Mode of Arrival: Ambulatory Information source: Patient Notes: 54-year-old man presents to the emergency department with a complaint of chest pain/pressure and weakness in his left arm. He has a history of labile hypertension states that his blood pressure this morning was 190/110, he complained of headache, chest pressure, weakness in his left arm and presents to the hospital for evaluation. 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 He also notes he has a history of diabetes mellitus and uses Trulicity, and takes occasional doses of glipizide when his blood sugar is elevated. He presently continues to complain of weakness in the right arm, denies any other associated neurologic symptoms. Onset of arm weakness was approximately 7 PM 09/24/2019, last night. TRAVEL OUTSIDE OF THE [place] IN LAST 30 DAYS: No - Related Data Allergies/Adverse Reactions: lisinopril Allergy (Verified 09/25/19 11:31) embril Allergy (Uncoded 09/25/19 11:31) Home Medications: Trulicity, Clonidine, Allopurinol, Nifedipine Past Medical History - Social History Smoking Status: Former Smoker Family History: Reviewed & Not Pertinent Patient has suicidal ideation: No Patient has homicidal ideation: No - Past Medical History Cardiac Medical History: Reports: Hx Congestive Heart Failure, Hx Hype rcholesterolemia, Hx Hypertension Denies: Hx Coronary Artery Disease, Hx Heart Attack Pulmonary Medical History: Reports: Hx COPD, Hx Sleep Apnea Endocrine Medical History: Reports: Hx Diabetes Mellitus Type 2 Renal/ Medical History: Denies: Hx Peritoneal Dialysis GI Medical History: Reports: Hx Gastroesophageal Reflux Disease Past Surgical History: Reports: Hx Genitourinary Surgery - vasectomy, Hx Orthopedic Surgery - right finger - Immunizations Hx Pneumococcal Vaccination: 08/02/13 Review of Systems - Review of Systems Notes: Constitutional: Negative for fever. HENT: Negative for sore throat. Eyes: Negative for visual changes. Cardiovascular: + chest pain. Respiratory: Negative for shortness of breath. Gastrointestinal: Negative for abdominal pain, vomiting or diarrhea. Genitourinary: Negative for dysuria. Musculoskeletal: Negative for back pain. Skin: Negative for rash. Neurological: + Headaches, + right arm weakness . 10 point ROS negative except as marked above and in HPI. Physical Exam - Vital signs Vitals: Temp Pulse Resp BP Pulse Ox 98.1 F 78 19 169/81 H 96 09/25/19 09:29 09/25/19 09:29 09/25/19 09:29 09/25/19 09:29 09/25/19 09:29 - Notes Notes: PHYSICAL EXAMINATION: Physical Exam: General: Well-nourished well-developed 54-year-old man with elevated BMI, in no acute distress HEENT: NC/AT, pupils equal round and reactive to light, MM moist,nares clear, oropharynx clear, airway patent Neck: supple, no adenopathy, no masses. Good range of motion Lungs: clear, no wheezing, no rales no rhonchi CVS: Regular rate and rhythm no murmur gallop or rub Abdomen: Soft, active, nontender, no masses, no hepatosplenomegaly Ext: Trace edema, no clubbing or cyanosis. Neuro: Alert and responsive, moving all 4 extremities on command, cranial nerves intact, no focal findings Skin: Intact no open lesions, no rash PSYCH: Normal mood, normal affect. Course - Re-evaluation Re-evalutation: 09/25/19 12:22 54-year-old man presenting with hypertensive episode, headache, chest pain, left arm weakness. CT scan negative, EKG no acute ST elevation and lab revealing elevated blood sugar, not acidotic no gap. The patient blood pressure has i mproved in the emergency department. I have discussed with the patient the onset of symptoms at approximately 7 PM last night but some outside of the concerns for treatment with TPA. 09/25/19 12:30 Discussed with the patient the fact that he has new left arm weakness, uncontrolled diabetes mellitus and labile hypertension.he will be admitted to the hospital for further evaluation of his symptoms. Stroke work-up along with management of his glucose and hypertension will be done while in the hospital. Patient has no focal weakness or numbness that can be identified on my exam, however he feels that his arm is clinically weaker than normal. NIH scale 0. The patient is not a candidate for TPA given the lack of clinical objective findings and onset of symptoms greater than 12 hours. The hospitalist, Dr. Khalil was contacted and he will admit the patient to the hospital for further evaluation. - Vital Signs Vital signs: Temp Pulse Resp BP Pulse Ox 98.1 F 72 16 150/91 H 98 09/25/19 09:29 09/25/19 11:30 09/25/19 11:30 09/25/19 11:30 09/25/19 11:30 - Laboratory Result Diagrams: 09/25/19 10:08 09/25/19 10:08 Laboratory results interpreted by me: 09/25/19 09/25/19 09/25/19 10:08 10:08 10:08 RDW 15.5 H Sodium 134.1 L BUN 29 H Creatinine 1.60 H Est GFR ( Amer) 55 L Est GFR (MDRD) Non-Af 45 L Glucose 414 H* ALT 85 H Urine Protein 100 H Urine Glucose (UA) >=500 H - Diagnostic Test Radiology reviewed: Image reviewed, Reports reviewed - Chest x-ray: No acute infiltrate or effusion CT head without contrast: No intracranial hemorrhage, no signs of acute stroke. Discharge - Discharge Clinical Impression: Left arm weakness, Labile hypertension, Poorly controlled diabetes mellitus Condition: Good Disposition: ADMITTED INPATIENT Admitting Provider: Remi (Hospitalist) Unit Admitted: [facility]
[2019-09-25] MEDS ORDERED: INSULIN REG, HUMAN 100 UNIT/ML 3 ML VIAL (PYX) IV ONE (12:25)
[2019-09-25] MEDS ORDERED: NORMAL SALINE 1000 ML 1,000 ML IV ONE (12:34)
[2019-09-25] MEDS ORDERED: ONDANSETRON 4 MG TAB.RAPDIS PO PRN (14:33)
[2019-09-25] MEDS ORDERED: MAG HYDROX/AL HYDROX/SIMETH SUSP 30 ML UDCUP PO PRN (14:33)
[2019-09-25] MEDS ORDERED: ACETAMINOPHEN 325 MG TABLET PO PRN (14:33)
[2019-09-25] MEDS ORDERED: IPRATROPIUM/ALBUTEROL 0.5-2.5 MG/3 ML AMPUL NEB PRN (14:33)
[2019-09-25] MEDS ORDERED: CARVEDILOL 3.125 MG TABLET PO ONE (14:50)
[2019-09-25] MEDS ORDERED: HYDRALAZINE HCL 25 MG TABLET PO ONE (14:50)
[2019-09-25] MEDS ORDERED: AMLODIPINE BESYLATE 10 MG TABLET PO ONE (14:50)
[2019-09-25] MEDS ORDERED: DEXTROSE 50%-WATER 25 GM/50 ML DISP.SYRIN IV PRN ×2 (14:51)
[2019-09-25] MEDS ORDERED: GLUCAGON,HUMAN RECOMB 1 MG INJ IM PRN (14:51)
[2019-09-25] MEDS ORDERED: DEXTROSE 40% GEL 15 GM TUBE PO PRN ×2 (14:51)
[2019-09-25] MEDS ORDERED: NITROGLYCERIN 0.4 MG/TAB 25 TAB/BOTTLE SL PRN (14:54)
--- NOTE | 2019-09-25 15:02 | PDOC H&P ---
History of Present Illness Admission Date/PCP: 09/25/19 12:39 ROD PERRY DO Patient complains of: Hypertensive emergency, hyperglycemia due to diabetes mellitus, chest pain History of Present Illness: NILTON FARRELL is a 54 year old male with history of diabetes, hypertension, hypertriglyceridemia, COPD and multiple other comorbidities states that over the last day or 2 he has been feeling short of breath. He has had a headache. He felt dizzy and there was tightness in his chest. His pulse was pounding in his head with a rushing sensation in his ears. He took medications last night but his blood pressure was still high. He denies any fever or chills. He reports no respiratory symptoms. He does state that he has been having trouble with blood pressure control ever since he stopped his Coreg several months ago. His aircraft magneto mechanic is Dr. Phelps (he will see him tomorrow) and he has tried multiple different combinations of medicines to try and achieve better blood pressure control. On examination his blood pressure was as high as 176/110. Hi s pulse was never elevated. He was tachypneic but did not require oxygen. Laboratory studies showed a glucose of 414 with a BUN of 29 and a creatinine of 1.6. His sodium was slightly low at 134 but he had normal potassium levels. His EKG was unremarkable. Imaging of the chest and CT of the head were unremarkable. He was referred to the hospitalist service for admission. Dr. Phelps will see him in the morning. Past Medical History Cardiac Medical History: Reports: Congestive Heart Failure, Hyperlipidema, Hypertension Denies: Coronary Artery Disease, Myocardial Infarction Pulmonary Medical History: Reports: Chronic Obstructive Pulmonary Disease (COPD), Sleep Apnea Endocrine Medical History: Reports: Diabetes Mellitus Type 2 GI Medical History: Reports: Gastroesophageal Reflux Disease Past Surgical History Past Surgical History: Reports: Orthopedic Surgery - right finger Social History Information Source: Patient, Outside Facility Records Lives with: Spouse/Significant other Smoking Status: Former Smoker Frequency of Alcohol Use: None Hx Recreational Drug Use: No Drugs: None Hx Prescription Drug Abuse: No Family History Family History: Reviewed & Not Pertinent Parental Family History Reviewed: Yes - Adopted Children Family History Reviewed: Yes Sibling(s) Family History Reviewed.: NA Medication/Allergy Home Medications: Almotriptan Malate 12.5 mg PO DAILYP PRN 09/25/19 Duloxetine HCl 20 mg PO DAILY 09/25/19 Nifedipine [Nifedipine ER] 60 mg PO DAILY 09/25/19 Ondansetron [Zofran Odt 4 mg Tablet] 4 mg PO Q8HP PRN 09/25/19 Rizatriptan Benzoate [Rizatriptan] 10 mg PO DAILYP PRN 09/25/19 Allergies/Adverse Reactions: lisinopril Allergy (Verified 09/25/19 11:31) embril Allergy (Uncoded 09/25/19 11:31) Review of Systems All systems: reviewed and no additional remarkable complaints except as stated Constitutional: PRESENT: headache(s) Cardiovascular: PRESENT: chest pain, palpitations Integumentary: PRESENT: other - Lipomas Physical Exam Vital Signs: Temp Pulse Resp BP Pulse Ox 98.1 F 72 16 150/91 H 98 09/25/19 09:29 09/25/19 11:30 09/25/19 11:30 09/25/19 11:30 09/25/19 11:30 Intake & Output 09/24/19 09/25/19 09/26/19 06:59 06:59 06:59 Intake Total 1000 Balance 1000 Weight 143 kg General appearance: PRESENT: cooperative, mild distress, obese, well-developed, well-nourished Head exam: PRESENT: atraumatic, normocephalic, other - Probable lipoma right TMJ area and left frontoparietal area. Soft and doughy. No pain or discoloration. Eye exam: PRESENT: conjunctiva pink, EOMI. ABSENT: scleral icterus Ear exam: PRESENT: normal external ear exam. ABSENT: bleeding, drainage Mouth exam: PRESENT: moist, tongue midline Teeth exam: ABSENT: poor dentation Neck exam: PRESENT: full ROM. ABSENT: carotid bruit, JVD - Very thick neck. Difficult to assess., lymphadenopathy Respiratory exam: PRESENT: clear to auscultation ruthann, symmetrical, unlabored. ABSENT: prolonged expiratory phas, rales, rhonchi, tachypnea, wheezes Cardiovascular exam: PRESENT: RRR, +S1, +S2, systolic murmur - 2/6 Pulses: PRESENT: normal radial pulses, normal dorsalis pedis pul GI/Abdominal exam: PRESENT: normal bowel sounds, soft, other - Protuberant abdomen. ABSENT: firm, guarding, tenderness Rectal exam: PRESENT: deferred Gentrourinary exam: ABSENT: indwelling catheter Extremities exam: ABSENT: pedal edema Musculoskeletal exam: PRESENT: ambulatory, deformity - Enlarged left metatarsophalangeal joint. Neurological exam: PRESENT: alert, awake, oriented to person, oriented to place, oriented to time, oriented to situation, CN II-XII grossly intact. ABSENT: altered, motor sensory deficit Psychiatric exam: PRESENT: appropriate affect, normal mood. ABSENT: agitated, anxious Focused psych exam: ABSENT: delusional, paranoid, restlessness Skin exam: PRESENT: dry, normal color, warm. ABSENT: jaundice, rash Results Laboratory Results: 09/25/19 10:08 09/25/19 10:08 09/25/19 09/25/19 09/25/19 10:08 10:08 10:08 WBC 8.1 RBC 4.82 Hgb 14.9 Hct 43.4 MCV 90 MCH 31.0 MCHC 34.4 RDW 15.5 H Plt Count 194 Seg Neutrophils % 73.6 Sodium 134.1 L Potassium 4.2 Chloride 99 Carbon Dioxide 24 Anion Gap 11 BUN 29 H Creatinine 1.60 H Est GFR ( Amer) 55 L Glucose 414 H* Calcium 9.4 Magnesium 1.9 Total Bilirubin 0.6 AST 44 Alkaline Phosphatase 97 Total Protein 6.9 Albumin 4.1 Urine Color STRAW Urine Appearance CLEAR Urine pH 6.0 Ur Specific [place] 1.010 Urine Protein 100 H Urine Glucose (UA) >=500 H Urine Ketones NEGATIVE Urine Blood NEGATIVE Urine RBC (Auto) 1 09/25/19 09/25/19 10:08 13:00 Troponin I 0.021 0.015 Impressions: Chest X-Ray 09/25/19 09:48 IMPRESSION: No acute cardiopulmonary process. Head CT 09/25/19 09:48 IMPRESSION: No acute intracranial abnormality. EVIDENCE OF ACUTE STROKE: NO. Assessment and Plan - Diagnosis (1) Hypertensive emergency Is this a current diagnosis for this admission?: Yes (2) Hyperglycemia due to type 2 diabetes mellitus Qualifiers: Diabetes mellitus predatory animal exterminator insulin use: without predatory animal exterminator use Qualified Code(s): E11.65 - Type 2 diabetes mellitus with hyperglycemia Is this a current diagnosis for this admission?: Yes (3) COPD (chronic obstructive pulmonary disease) Qualifiers: COPD type: unspecified COPD Qualified Code(s): J44.9 - Chronic obstructive pulmonary disease, unspecified Is this a current diagnosis for this admission?: Yes (4) Chest pain, unspecified Qualifiers: Chest pain type: unspecified Qualified Code(s): R07.9 - Chest pain, unspecified Is this a current diagnosis for this admission?: Yes (5) Acute kidney injury Is this a current diagnosis for this admission?: Yes (6) Hyponatremia Is this a current diagnosis for this admission?: Yes (7) MARIELENA (obstructive sleep apnea) Is this a current diagnosis for this admission?: Yes (8) Hypertriglyceridemia Is this a current diagnosis for this admission?: Yes (9) Polyarthropathy Is this a current diagnosis for this admission?: Yes - Plan Summary Summary: 09/25/2019 Hypertensive emergency-the patient has had multiple changes in his blood pressure medications. He feels strongly that since he came off of the Coreg his blood pressure has been very difficult to control. I have started him on a low-dose of Coreg and continued his losartan, hydralazine, furosemide and clonidine. Will monitor him on telemetry along with vital signs. I do not believe that his chest pain was cardiac in nature. Troponins were negative and EKG was unremarkable. Hyperglycemia due to diabetes mellitus type 2-I have ordered a hemoglobin A1c to see how uncontrolled his diabetes is. We will continue glipizide 10 mg twice a day and place the patient on a sliding scale. He uses Trulicity once a week but we will hold that medication for the time being. COPD-the patient is not having an exacerbation of COPD however we will continue his Brio Ellipta that he uses daily. The patient is supposed to wear BiPAP at home but admits to poor compliance. I will order BiPAP and he can use his own machine if he wishes. Acute kidney injury-we will monitor the intake and output. He reports that his creatinine was high once before. This may be early chronic kidney disease from diabetes, hypertension or both. Hypertriglyceridemia-continue fenofibrate Polyarthropathy-the patient is on Cosentyx but does not believe that he has psoriatic arthritis. He does take glucosamine but this is not essential for this hospitalization. Hyponatremia-this is likely secondary to his hyperglycemia. It corrects when you account for his glucose. We will continue to monitor his electrolytes as we ll as his kidney function. Dr. Phelps will see him in the morning. - Time Time Spent with patient: 35 or more minutes Medications reviewed and adjusted accordingly: Yes Anticipated discharge: Home - Inpatient Certification Based on my medical assessment, after consideration of the patient's comorbidities, presenting symptoms, or acuity I expect that the services needed warrant INPATIENT care.: Yes I certify that my determination is in accordance with my understanding of Medicare's requirements for reasonable and necessary INPATIENT services [42 CFR 412.3e].: Yes Medical Necessity: Failure to Improve With Outpatient Therapy, Need For Continuous Telemetry Monitoring, Risk of Complication if Not Cared For in [facility] Post Hospital Care: D/C Welt Treater Documentation
[2019-09-25] MEDS: INSULIN LISPRO 100 UNIT/ML 3 ML VIAL SUBCUT SCH ×2 (16:46→21:50)
--- NOTE | 2019-09-25 18:14 | EKG REPORT ---
SEVERITY:- ABNORMAL ECG - SINUS RHYTHM NONSPECIFIC INTRAVENTRICULAR CONDUCTION DELAY : Confirmed by: Daniela Delgado MD 25-Sep-2019 18:13:21
[2019-09-25] MEDS: HEPARIN SOD (PORCINE) 5,000 UNIT/ML 1 ML VIAL SUBCUT SCH (21:49)
[2019-09-26] MEDS ORDERED: ONDANSETRON 4 MG TAB.RAPDIS PO PRN
[2019-09-26] MEDS: METOPROLOL SUCCINATE 50 MG TAB.SR.24H PO SCH (00:33)
[2019-09-26] MEDS: LOSARTAN POTASSIUM 50 MG TABLET PO SCH ×3 (00:33→21:48)
[2019-09-26] MEDS: DOCUSATE SODIUM 100 MG CAPSULE PO SCH ×3 (00:39→19:27)
[2019-09-26] MEDS: HYDRALAZINE HCL INJ/PF 20 MG/1 ML SDV IV PRN ×2 (03:46→12:11)
[2019-09-26 05:37] LABS: ABSOLUTE EOSINOPHILS # (AUTO) 0.1 10^3/uL (0.0-0.6); ABSOLUTE MONOCYTES (AUTO) 0.9 10^3/uL (0.1-1.4); ABSOLUTE NEUT (AUTO) 9.2 10^3/uL (1.7-8.2); BASOPHILS % (AUTO) 0.2 % (0-2); EOSINOPHILS % (AUTO) 0.7 % (0-6); HEMATOCRIT 42.4 % (37.9-51.0); HEMOGLOBIN 14.5 g/dL (13.5-17.0); MEAN CORPUSCULAR HEMOGLOBIN 30.8 pg (27.0-33.4); MEAN CORPUSCULAR HGB CONC 34.3 g/dL (32.0-36.0); MEAN CORPUSCULAR VOLUME 90 fl (80-97); MONOCYTES % (AUTO) 7.7 % (3-13); PLATELET COUNT 230 10^3/uL (150-450); RED BLOOD COUNT 4.72 10^6/uL (4.35-5.55); RED CELL DISTRIBUTION WIDTH 14.9 % (11.5-14.0); SEGMENTED NEUTROPHILS % (AUTO) 75.4 % (42-78); TOTAL CELLS COUNTED % (AUTO) 100 %; WHITE BLOOD COUNT 12.2 10^3/uL (4.0-10.5)
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
[2019-09-26 05:58] LABS: ANION GAP 10 (5-19); BLOOD UREA NITROGEN 29 mg/dL (7-20); CALCIUM 9.4 mg/dL (8.4-10.2); CARBON DIOXIDE 24 mmol/L (22-30); CHLORIDE 102 mmol/L (98-107); CHOLESTEROL 216.92 mg/dL (0-200); GLUCOSE 187 mg/dL (75-110); POTASSIUM 4.2 mmol/L (3.6-5.0); TRIGLYCERIDES 487 mg/dL (<150)
[2019-09-26] MEDS: PANTOPRAZOLE SODIUM 40 MG TABLET.DR PO SCH (06:04)
[2019-09-26] MEDS: HEPARIN SOD (PORCINE) 5,000 UNIT/ML 1 ML VIAL SUBCUT SCH ×3 (06:04→21:47)
[2019-09-26 06:09] LABS: DIRECT LDL 125 mg/dL (<100)
[2019-09-26] MEDS: INSULIN LISPRO 100 UNIT/ML 3 ML VIAL SUBCUT SCH ×4 (08:41→21:45)
[2019-09-26] MEDS: OXYCODONE-ACETAMINOPHEN 5-325 MG TABLET PO PRN ×3 (08:57→19:25)
[2019-09-26] MEDS ORDERED: DULOXETINE HCL 20 MG CAPSULE.DR PO SCH (10:00)
[2019-09-26] MEDS: FLUTICASONE/VILANTEROL 200-25 MCG/DOSE IH SCH (10:48)
[2019-09-26] MEDS: NIFEDIPINE 30 MG TAB.ER.24 PO SCH (12:03)
[2019-09-26] MEDS: FUROSEMIDE 40 MG TABLET PO SCH (12:04)
[2019-09-26] MEDS ORDERED: (PENDING PHARMACY ID) (Losartan Potassium [Losartan Potassium] 100 MG) PO SCH (14:30)
--- NOTE | 2019-09-26 14:35 | PDOC PROGRESS REPORT ---
Subjective Progress Note for:: 09/26/19 Subjective:: NILTON FARRELL is a 54 year old male with history of diabetes, hypertension, hypertriglyceridemia, COPD and multiple other comorbidities states that over the last day or 2 he has been feeling short of breath. He has had a headache. He felt dizzy and there was tightness in his chest. His pulse was pounding in his head with a rushing sensation in his ears. He took medications last night but his blood pressure was still high. He denies any fever or chills. He reports no respiratory symptoms. He does state that he has been having trouble with blood pressure control ever since he stopped his Coreg several months ago. His validation leader is Dr. Phelps (he will see him tomorrow) and he has tried multiple different combinations of medicines to try and achieve better blood pressure control. On examination his blood pressure was as high as 176/110. His pulse was never elevated. He was tachypneic but did not require oxygen. Laboratory studies showed a glucose of 414 with a BUN of 29 and a creatinine of 1.6. His sodium was slightly low at 134 but he had normal potassium levels. His EKG was unremarkable. Imaging of the chest and CT of the head were unre markable. He was referred to the hospitalist service for admission. Dr. Phelps will see him in the morning. 09/26/2019. No acute events overnight. Patient resting in bed no apparent distress, complaining of headache overnight and not being able to sleep much, denies any fever, chills, nausea, vomiting, diarrhea, constipation or any urinary symptoms. Shortness of breath improving. Reason For Visit: LEFT ARM WEAKNESS,LABILE HYPERTENSION,POORLY Physical Exam Vital Signs: Temp Pulse Resp BP Pulse Ox 98.0 F 65 17 184/110 H 94 09/26/19 12:09 09/26/19 12:09 09/26/19 12:09 09/26/19 12:09 09/26/19 12:09 Intake & Output 09/25/19 09/26/19 09/27/19 06:59 06:59 06:59 Intake Total 1260 Balance 1260 Weight 139.8 kg General appearance: PRESENT: obese Head exam: PRESENT: atraumatic, normocephalic Respiratory exam: PRESENT: clear to auscultation ruthann. ABSENT: rales, rhonchi, wheezes Cardiovascular exam: PRESENT: RRR. ABSENT: diastolic murmur, rubs, systolic murmur GI/Abdominal exam: PRESENT: normal bowel sounds, soft. ABSENT: distended, guarding, mass, organolmegaly, rebound, tenderness Neurological exam: PRESENT: alert, awake, oriented to person, oriented to place, oriented to time, oriented to situation, CN II-XII grossly intact. ABSENT: motor sensory deficit Results Laboratory Results: 09/26/19 04:17 09/26/19 04:17 09/26/19 09/26/19 04:17 04:17 WBC 12.2 H RBC 4.72 Hgb 14.5 Hct 42.4 MCV 90 MCH 30.8 MCHC 34.3 RDW 14.9 H Plt Count 230 Seg Neutrophils % 75.4 Sodium 136.3 L Potassium 4.2 Chloride 102 Carbon Dioxide 24 Anion Gap 10 BUN 29 H Creatinine 1.61 H Est GFR ( Amer) 55 L Glucose 187 H Calcium 9.4 Magnesium 2.0 Triglycerides 487 H Cholesterol 216.92 H LDL Cholesterol Direct 125 H HDL Cholesterol 34 L 09/25/19 09/25/19 10:08 13:00 Troponin I 0.021 0.015 Impressions: Chest X-Ray 09/25/19 09:48 IMPRESSION: No acute cardiopulmonary process. Head CT 09/25/19 09:48 IMPRESSION: No acute intracranial abnormality. EVIDENCE OF ACUTE STROKE: NO. Assessment and Plan - Diagnosis (1) Hypertensive emergency Is this a current diagnosis for this admission?: Yes Plan: Improving. Not optimized. Used to take carvedilol and nifedipine with good result. Had DC'd his carvedilol in the past attributing it with his erectile dysfunction.. Resume losartan, carvedilol, nifedipine and Lasix. PRN IV hydralazine. Renal Doppler to rule out renal artery stenosis. Cardiac diet. Strict in and out. Cardiology consulted. Recommendations noted. (2) Acute kidney injury superimposed on CKD Is this a current diagnosis for this admission?: Yes Plan: Nonoliguric. Denies any uremic symptoms. Likely due to hypertensive emergency. Baseline creatinine 1.5. Monitor volume status and electrolytes, replace as needed. Nephrotoxic meds. Pending renal ultrasound. If no improvement will consult nephrology. (3) Heart failure Qualifiers: Heart failure type: diastolic Heart failure chronicity: acute Qualified Code(s): I50.31 - Acute diastolic (congestive) heart failure Is this a current diagnosis for this admission?: Yes Plan: Likely acutely exacerbated due to hypertensive emergency. Denies any history of CAD. BNP on previous admission negative. No BNP on this admission yet. Echocardiogram 09/01/2017 at [facility]. Left ventricular ejection fraction 60%. Grade 1 diastolic dysfunction. Nuclear stress test on 09/02/2018. No evidence of ischemia or infarct. Normal ejection fraction. Continue beta-blockers, ARB, diuretics. Cardiac diet. Strict in and out. We will obtain proBNP. Pending 2D echo. Cardiology on board. Recommendations noted. (4) Diabetes Qualifiers: Diabetes mellitus type: type 2 Chronic kidney disease stage: stage 2 (mild) Is this a current diagnosis for this admission?: Yes Plan: Controlled. Hemoglobin A1c 7.9%. Home meds are Trulicity and glipizide. Continue diabetic diet. Accu-Chek. Hypoglycemia protocol. Basal, sliding and correctional insulin. Resume home meds upon discharge. Outpatient PCP follow-up. (5) Hyperlipidemia Is this a current diagnosis for this admission?: Yes Plan: ASCVD score of 29.6%. Patient takes TriCor at home. Given elevated ASCVD score of 29.6 patient needs to be on high intensity statins. Will switch TriCor with omega-2 g daily for hypertriglyceridemia as TriCor can exacerbate myositis caused by statins. We will start on atorvastatin 40 mg nightly. [place]-3 fatty acid 2 g daily. (6) Chest pain, unspecified Qualifiers: Chest pain type: unspecified Qualified Code(s): R07.9 - Chest pain, unspecified Is this a current diagnosis for this admission?: Yes Plan: Most likely due to hypertensive emergency. Troponin 0.015. EKG sinus rhythm. Nonspecific interventricular conduction delay. Negative nuclear stress test on 10/26/2018. Continue statins, beta-blockers, ABBEY, antiplatelets. PRN morphine and sublingual nitroglycerin. (7) COPD (chronic obstructive pulmonary disease) Qualifiers: COPD type: unspecified COPD Qualified Code(s): J44.9 - Chronic obstructive pulmonary disease, unspecified Is this a current diagnosis for this admission?: Yes Plan: Does not seem to be acutely exacerbated. Continue current treatment. (8) MARIELENA (obstructive sleep apnea) Is this a current diagnosis for this admission?: Yes Plan: Nocturnal CPAP. Outpatient nocturnal polysomnography.
--- NOTE | 2019-09-26 17:07 | EKG REPORT ---
SEVERITY:- BORDERLINE ECG - SINUS RHYTHM BORDERLINE R WAVE PROGRESSION, ANTERIOR LEADS : Confirmed by: Daniela Delgado MD 26-Sep-2019 17:06:32
[2019-09-26] MEDS: ATORVASTATIN CALCIUM 40 MG TABLET PO SCH (21:48)
[2019-09-26] MEDS: CARVEDILOL 6.25 MG TABLET PO SCH (21:48)
[2019-09-26] MEDS ORDERED: INSULIN GLARGINE,HUM.REC.ANLOG 1,000 UNIT/10 ML VIAL SUBCUT SCH (22:00)
[2019-09-27] MEDS: HYDRALAZINE HCL INJ/PF 20 MG/1 ML SDV IV PRN ×2 (00:20→05:16)
[2019-09-27 05:02] LABS: ABSOLUTE BASOPHILS # (AUTO) 0.1 10^3/uL (0.0-0.2); ABSOLUTE EOSINOPHILS # (AUTO) 0.1 10^3/uL (0.0-0.6); ABSOLUTE LYMPHOCYTES (AUTO) 2.5 10^3/uL (0.5-4.7); BASOPHILS % (AUTO) 0.4 % (0-2); EOSINOPHILS % (AUTO) 0.8 % (0-6); HEMATOCRIT 46.6 % (37.9-51.0); HEMOGLOBIN 16.2 g/dL (13.5-17.0); LYMPHOCYTES % (AUTO) 18.3 % (13-45); MEAN CORPUSCULAR HGB CONC 34.8 g/dL (32.0-36.0); MEAN CORPUSCULAR VOLUME 89 fl (80-97); MONOCYTES % (AUTO) 7.6 % (3-13); PLATELET COUNT 290 10^3/uL (150-450); RED BLOOD COUNT 5.23 10^6/uL (4.35-5.55); RED CELL DISTRIBUTION WIDTH 15.5 % (11.5-14.0); SEGMENTED NEUTROPHILS % (AUTO) 72.9 % (42-78); TOTAL CELLS COUNTED % (AUTO) 100 %; WHITE BLOOD COUNT 13.7 10^3/uL (4.0-10.5)
[2019-09-27] MEDS: HEPARIN SOD (PORCINE) 5,000 UNIT/ML 1 ML VIAL SUBCUT SCH ×3 (05:17→21:20)
[2019-09-27] MEDS: OXYCODONE-ACETAMINOPHEN 5-325 MG TABLET PO PRN ×3 (05:17→17:18)
[2019-09-27] MEDS: PANTOPRAZOLE SODIUM 40 MG TABLET.DR PO SCH (05:18)
[2019-09-27 05:19] LABS: ANION GAP 10 (5-19); BLOOD UREA NITROGEN 33 mg/dL (7-20); CALCIUM 9.9 mg/dL (8.4-10.2); CARBON DIOXIDE 26 mmol/L (22-30); CHLORIDE 100 mmol/L (98-107); GLUCOSE 181 mg/dL (75-110); POTASSIUM 4.4 mmol/L (3.6-5.0)
--- NOTE | 2019-09-27 08:50 | RADIOLOGY REPORT (SQ) ---
EXAM DESCRIPTION: DUPLEX ART/DEVEN FLOW COMPLETE COMPLETED DATE/TIME: 09/27/2019 5:06 am REASON FOR STUDY: r/o renal artery stenosis. COMPARISON: None. TECHNIQUE: Realtime and static grayscale images acquired. Selected color Doppler, velocities and spe ctral images recorded. LIMITATIONS: Body habitus and overlying bowel gas. FINDINGS: RIGHT KIDNEY: RENAL ARTERY VELOCITIES: Main renal artery is not visualized due to overlying bowel gas. Main renal artery is demonstrated at the hilum. Velocities are calculated 65.7 cm/sec. Segmental artery veloci ty 67.2 cm/sec. RENAL VEIN: Color doppler flow present, patent. VELOCITY RATIO: 1.24. Normal waveforms. KIDNEY: The right kidney measures 12.5 cm in length. No significant pathology. LEFT KIDNEY: RENAL ARTERY VELOCITIES: Renal artery origin is not visualized. Velocities at the hilum are calculat ed 64.3 Cm/sec. Segmental artery velocity 51.9 cm/sec. RENAL VEIN: Color doppler flow present, patent. VELOCITY RATIO: 1.22. Normal waveforms. KIDNEY: The left kidney measures 13.1 cm in length. No significant pathology. BLADDER: Not visualized. OTHER: No other significant finding. IMPRESSION: Nonvisualization of the renal artery origins due to body habitus and overlying bowel gas . Velocities at the renal artery hilum and segmental arteries are normal. Waveforms appear normal. COMMENT: NORMAL RENAL ARTERY/AORTA VELOCITY RATIO IS LESS THAN OR EQUAL TO 3.5. TECHNICAL DOCUMENTATION: JOB ID: [id number] 2011 [employer]- All Rights Reserved Reading location - IP/workstation name: [email or web address]
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
[2019-09-27] MEDS: FLUTICASONE/VILANTEROL 200-25 MCG/DOSE IH SCH (09:12)
[2019-09-27] MEDS: NIFEDIPINE 30 MG TAB.ER.24 PO SCH (09:12)
[2019-09-27] MEDS: LOSARTAN POTASSIUM 50 MG TABLET PO SCH ×2 (09:12→23:20)
[2019-09-27] MEDS: ASPIRIN 81 MG TABLET, CHEWABLE PO SCH (09:13)
[2019-09-27] MEDS: INSULIN LISPRO 100 UNIT/ML 3 ML VIAL SUBCUT SCH ×4 (09:13→21:21)
[2019-09-27] MEDS: FUROSEMIDE 40 MG TABLET PO SCH (09:13)
[2019-09-27] MEDS: ALLOPURINOL 100 MG TABLET PO SCH (09:13)
[2019-09-27] MEDS: DOCUSATE SODIUM 100 MG CAPSULE PO SCH ×2 (09:13→17:16)
[2019-09-27] MEDS ORDERED: FENOFIBRATE 54 MG PO SCH (10:00)
[2019-09-27] MEDS ORDERED: CYCLOBENZAPRINE HCL 10 MG TABLET PO PRN (10:14)
[2019-09-27] MEDS: MAGNESIUM OXIDE 400 MG TABLET PO SCH (11:02)
[2019-09-27] MEDS: CARVEDILOL 12.5 MG TABLET PO SCH ×2 (11:02→21:19)
[2019-09-27] MEDS ORDERED: PROCHLORPERAZINE EDISYLATE INJ 10 MG/2 ML VIAL IM ONE (12:36)
--- NOTE | 2019-09-27 12:45 | PDOC PROGRESS REPORT ---
Subjective Progress Note for:: 09/27/19 Subjective:: NILTON FARRELL is a 54 year old male with history of diabetes, hypertension, hypertriglyceridemia, COPD and multiple other comorbidities states that over the last day or 2 he has been feeling short of breath. He has had a headache. He felt dizzy and there was tightness in his chest. His pulse was pounding in his head with a rushing sensation in his ears. He took medications last night but his blood pressure was still high. He denies any fever or chills. He reports no respiratory symptoms. He does state that he has been having trouble with blood pressure control ever since he stopped his Coreg several months ago. His social media specialist is Dr. Phelps (he will see him tomorrow) and he has tried multiple different combinations of medicines to try and achieve better blood pressure control. On examination his blood pressure was as high as 176/110. His pulse was never elevated. He was tachypneic but did not require oxygen. Laboratory studies showed a glucose of 414 with a BUN of 29 and a creatinine of 1.6. His sodium was slightly low at 134 but he had normal potassium levels. His EKG was unremarkable. Imaging of the chest and CT of the head were unre markable. He was referred to the hospitalist service for admission. Dr. Phelps will see him in the morning. 09/26/2019. No acute events overnight. Patient resting in bed no apparent distress, complaining of headache overnight and not being able to sleep much, denies any fever, chills, nausea, vomiting, diarrhea, constipation or any urinary symptoms. Shortness of breath improving. 09/27/2019. No acute events overnight. Complaining of persistent migraine headache denies any focal neurologic symptoms, denies any chest pain, denies any fever, chills, nausea, vomiting, diarrhea, constipation or any urinary symptoms. Reason For Visit: LEFT ARM WEAKNESS,LABILE HYPERTENSION,POORLY Physical Exam Vital Signs: Temp Pulse Resp BP Pulse Ox 98.5 F 91 18 144/81 H 94 09/27/19 11:37 09/27/19 11:37 09/27/19 11:37 09/27/19 11:37 09/27/19 11:37 Intake & Output 09/26/19 09/27/19 09/28/19 06:59 06:59 06:59 Intake Total 1260 1080 444 Balance 1260 1080 444 Weight 139.8 kg 138.7 kg General appearance: PRESENT: no acute distress, obese, well-developed, well- nourished Head exam: PRESENT: atraumatic, normocephalic Respiratory exam: PRESENT: clear to auscultation ruthann. ABSENT: rales, rhonchi, wheezes Cardiovascular exam: PRESENT: RRR. ABSENT: diastolic murmur, rubs, systolic murmur GI/Abdominal exam: PRESENT: normal bowel sounds, soft. ABSENT: distended, guarding, mass, organolmegaly, rebound, tenderness Neurological exam: PRESENT: alert, awake, oriented to person, oriented to place, oriented to time, oriented to situation, CN II-XII grossly intact. ABSENT: motor sensory deficit Results Laboratory Results: 09/27/19 03:53 09/27/19 03:53 09/27/19 09/27/19 03:53 03:53 WBC 13.7 H RBC 5.23 Hgb 16.2 Hct 46.6 MCV 89 MCH 31.0 MCHC 34.8 RDW 15.5 H Plt Count 290 Seg Neutrophils % 72.9 Sodium 136.2 L Potassium 4.4 Chloride 100 Carbon Dioxide 26 Anion Gap 10 BUN 33 H Creatinine 1.60 H Est GFR ( Amer) 55 L Glucose 181 H Calcium 9.9 09/25/19 09/25/19 10:08 13:00 Troponin I 0.021 0.015 Impressions: Chest X-Ray 09/25/19 09:48 IMPRESSION: No acute cardiopulmonary process. Head CT 09/25/19 09:48 IMPRESSION: No acute intracranial abnormality. EVIDENCE OF ACUTE STROKE: NO. Renal Artery Duplex 09/27/19 00:00 IMPRESSION: Nonvisualization of the renal artery origins due to body habitus and overlying bowel gas. Velocities at the renal artery hilum and segmental arteries are normal. Waveforms appear normal. Assessment and Plan - Diagnosis (1) Hypertensive emergency Is this a current diagnosis for this admission?: Yes Plan: Improving. Not optimized. Used to take carvedilol and nifedipine with good result. Had DC'd his carvedilol in the past attributing it with his erectile dysfunction.. Resume losartan, carvedilol, nifedipine and Lasix. PRN IV hydralazine. Renal Doppler not optimal due to body habitus, otherwise negative for any renal artery stenosis. Cardiac diet. Strict in and out. Cardiology consulted. Recommendations noted. (2) Acute kidney injury superimposed on CKD Is this a current diagnosis for this admission?: Yes Plan: Nonoliguric. Denies any uremic symptoms. Likely due to hypertensive emergency. Baseline creatinine 1.5. Monitor volume status and electrolytes, replace as needed. Nephrotoxic meds. Pending renal ultrasound. If no improvement will consult nephrology. (3) Heart failure Qualifiers: Heart failure type: diastolic Heart failure chronicity: acute Qualified Code(s): I50.31 - Acute diastolic (congestive) heart failure Is this a current diagnosis for this admission?: Yes Plan: Likely acutely exacerbated due to hypertensive emergency. Denies any history of CAD. BNP on previous admission negative. No BNP on this admission yet. Echocardiogram 09/01/2017 at [facility]. Left ventricular ejection fraction 60%. Grade 1 diastolic dysfunction. Nuclear stress test on 09/02/2018. No evidence of ischemia or infarct. Normal ejection fraction. Continue beta-blockers, ARB, diuretics. Cardiac diet. Strict in and out. We will obtain proBNP. Pending 2D echo. Cardiology on board. Recommendations noted. (4) Diabetes Qualifiers: Diabetes mellitus type: type 2 Chronic kidney disease stage: stage 2 (mild) Is this a current diagnosis for this admission?: Yes Plan: Controlled. Hemoglobin A1c 7.9%. Home meds are Trulicity and glipizide. Continue diabetic diet. Accu-Chek. Hypoglycemia protocol. Basal, sliding and correctional insulin. Resume home meds upon discharge. Outpatient PCP follow-up. (5) Hyperlipidemia Is this a current diagnosis for this admission?: Yes Plan: ASCVD score of 29.6%. Patient takes TriCor at home. Given elevated ASCVD score of 29.6 patient needs to be on high intensity statins. Will switch TriCor with omega-2 g daily for hypertriglyceridemia as TriCor can exacerbate myositis caused by statins. We will start on atorvastatin 40 mg nightly. Roxana-3 fatty acid 2 g daily. (6) Chest pain, unspecified Qualifiers: Chest pain type: unspecified Qualified Code(s): R07.9 - Chest pain, unspecified Is this a current diagnosis for this admission?: Yes Plan: Most likely due to hypertensive emergency. Troponin 0.015. EKG sinus rhythm. Nonspecific interventricular conduction delay. Negative nuclear stress test on 10/26/2018. Continue statins, beta-blockers, ABBEY, antiplatelets. PRN morphine and sublingual nitroglycerin. (7) COPD (chronic obstructive pulmonary disease) Qualifiers: COPD type: unspecified COPD Qualified Code(s): J44.9 - Chronic obstructive pulmonary disease, unspecified Is this a current diagnosis for this admission?: Yes Plan: Does not seem to be acutely exacerbated. Continue current treatment. (8) MARIELENA (obstructive sleep apnea) Is this a current diagnosis for this admission?: Yes Plan: Nocturnal CPAP. Outpatient nocturnal polysomnography. (9) Migraine headache Qualifiers: Migraine type: without aura Intractability: intractable Is this a current diagnosis for this admission?: Yes Plan: History of uncontrolled migraine. Denies any focal nausea symptoms. Has been seen by neurologist has failed sumatriptan and naratriptan. Was supposed to be started on eletriptan by neurologist however he has not filled his prescription due to financial reasons. Unfortunately we do not carry eletriptan here at [facility]. We will give 1 dose of Compazine and continue supportive measures.
[2019-09-27] MEDS ORDERED: PROCHLORPERAZINE MALEATE 5 MG TABLET PO ONE (13:30)
[2019-09-27] MEDS: CARVEDILOL 6.25 MG TABLET PO SCH (21:12)
[2019-09-27] MEDS: METOPROLOL SUCCINATE 50 MG TAB.SR.24H PO SCH (21:12)
[2019-09-27] MEDS: ATORVASTATIN CALCIUM 40 MG TABLET PO SCH (21:20)
[2019-09-27] MEDS ORDERED: CARVEDILOL 6.25 MG TABLET PO SCH (22:00)
[2019-09-27] MEDS ORDERED: INSULIN GLARGINE,HUM.REC.ANLOG 1,000 UNIT/10 ML VIAL SUBCUT SCH (22:00)
[2019-09-28] MEDS: PANTOPRAZOLE SODIUM 40 MG TABLET.DR PO SCH (05:28)
[2019-09-28] MEDS: HEPARIN SOD (PORCINE) 5,000 UNIT/ML 1 ML VIAL SUBCUT SCH (05:28)
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
[2019-09-28] MEDS: DOCUSATE SODIUM 100 MG CAPSULE PO SCH (09:25)
[2019-09-28] MEDS: FUROSEMIDE 40 MG TABLET PO SCH (09:25)
[2019-09-28] MEDS: ALLOPURINOL 100 MG TABLET PO SCH (09:25)
[2019-09-28] MEDS: CARVEDILOL 12.5 MG TABLET PO SCH (09:25)
[2019-09-28] MEDS: MAGNESIUM OXIDE 400 MG TABLET PO SCH (09:25)
[2019-09-28] MEDS: LOSARTAN POTASSIUM 50 MG TABLET PO SCH (09:25)
[2019-09-28] MEDS: ASPIRIN 81 MG TABLET, CHEWABLE PO SCH (09:25)
[2019-09-28] MEDS: FLUTICASONE/VILANTEROL 200-25 MCG/DOSE IH SCH (09:26)
[2019-09-28] MEDS: NIFEDIPINE 30 MG TAB.ER.24 PO SCH (09:26)
[2019-09-28] MEDS: INSULIN LISPRO 100 UNIT/ML 3 ML VIAL SUBCUT SCH (09:26)
[2019-09-28 10:32] LABS: ABSOLUTE EOSINOPHILS # (AUTO) 0.1 10^3/uL (0.0-0.6); ABSOLUTE LYMPHOCYTES (AUTO) 2.1 10^3/uL (0.5-4.7); ABSOLUTE NEUT (AUTO) 8.7 10^3/uL (1.7-8.2); BASOPHILS % (AUTO) 0.3 % (0-2); EOSINOPHILS % (AUTO) 0.7 % (0-6); HEMATOCRIT 45.5 % (37.9-51.0); HEMOGLOBIN 15.5 g/dL (13.5-17.0); LYMPHOCYTES % (AUTO) 17.4 % (13-45); MEAN CORPUSCULAR HEMOGLOBIN 30.5 pg (27.0-33.4); MEAN CORPUSCULAR VOLUME 90 fl (80-97); MONOCYTES % (AUTO) 8.5 % (3-13); PLATELET COUNT 253 10^3/uL (150-450); RED BLOOD COUNT 5.08 10^6/uL (4.35-5.55); RED CELL DISTRIBUTION WIDTH 15.2 % (11.5-14.0); SEGMENTED NEUTROPHILS % (AUTO) 73.1 % (42-78); TOTAL CELLS COUNTED % (AUTO) 100 %; WHITE BLOOD COUNT 11.9 10^3/uL (4.0-10.5)
[2019-09-28 10:56] LABS: ANION GAP 8 (5-19); BLOOD UREA NITROGEN 40 mg/dL (7-20); CALCIUM 9.3 mg/dL (8.4-10.2); CARBON DIOXIDE 25 mmol/L (22-30); CHLORIDE 103 mmol/L (98-107); GLUCOSE 181 mg/dL (75-110); POTASSIUM 4.4 mmol/L (3.6-5.0)
[2019-09-28 10:57] VITALS: BP 155/91
--- NOTE | 2019-09-28 11:55 | XCELERA REPORT ---
[address] [address] Transthoracic Echocardiogram Report Name: NILTON FARRELL Age: 54 yrs Gender: Male : 1965 Patient Status: Inpatient Patient Location: [address] [place], [place] [address]A Study Date: 09/27/2019 03:39 PM Height: 75 in Weight: 305 lb BSA: 2.6 m2 Reason For Study: CHF Ordering Physician: BRIAN HAYNES Performed By: Julieta Rodríguez Interpretation Summary Difficult sudy due to Pt. body habitus. Limited subcostal pics. The left ventricle is moderately dilated. Left ventricular systolic function is normal. LV EF is 60%. Doppler measurements suggest impaired left ventricular relaxation, which is associated with grade I/IV or mild diastolic dysfunction. Regional wall motion abnormalities cannot be excluded due to limited visualization. Trace to mild MR, trace to mild TR. MMode/2D Measurements & Calculations RVDd: 2.6 cm LVIDd: 6.5 cm FS: 34.4 % Ao root diam: 3.6 cm IVSd: 1.2 cm LVIDs: 4.2 cm EDV(Teich): 214.3 ml LVPWd: 1.1 cm ESV(Teich): 80.7 ml Ao root area: 10.2 cm2 LA dimension: 3.4 cm EF(Teich): 62.3 % Doppler Measurements & Calculations MV E max mich: MV P1/2t max mich: Ao V2 max: LV V1 max P.2 cm/sec 55.7 cm/sec 92.3 cm/sec 2.7 mmHg MV A max mich: MV P1/2t: 54.3 msec Ao max PG: LV V1 max: 69.2 cm/sec MVA(P1/2t): 4.1 cm2 3.4 mmHg 82.6 cm/sec MV E/A: 0.65 MV dec slope: 300.2 cm/sec2 MV dec time: 0.27 sec PA V2 max: MV P1/2t-pr_phl: 91.6 cm/sec 54.3 msec PA max P.4 mmHg Left Ventricle The left ventricle is moderately dilated. Left ventricular systolic function is normal. LV EF is 60%. Doppler measurements suggest impaired left ventricular relaxation, which is associated with grade I/IV or mild diastolic dysfunction. Regional wall motion abnormalities cannot be excluded due to limited visualization. Right Ventricle The right ventricular systolic function is normal. Atria The right atrium is normal. The left atrial size is normal. Mitral Valve The mitral valve is normal in structure and function. There is no evidence of mitral valve prolapse. There is a trace to mild amount of mitral regurgitation. Aortic Valve The aortic valve is normal in structure and functions normally. No aortic regurgitation is present. Tricuspid Valve The tricuspid is normal in structure and function. There is a trace to mild amount of tricuspid regurgitation. Pulmonic Valve The pulmonic valve is normal in structure and function. There is no pulmonic valvular regurgitation. : BRIAN HAYNES Antonio
--- NOTE | 2019-10-15 13:17 | PDOC DISCHARGE SUMMARY ---
Impression - Admit/DC Date/PCP Admission Date/Primary Care Provider: 09/25/19 12:39 ROD PERRY DO Discharge Date: 09/28/19 - Discharge Diagnosis (1) Hypertensive emergency Is this a current diagnosis for this admission?: Yes (2) Acute kidney injury superimposed on CKD Is this a current diagnosis for this admission?: Yes (3) Heart failure Is this a current diagnosis for this admission?: Yes (4) Diabetes Is this a current diagnosis for this admission?: Yes (5) Hyperlipidemia Is this a current diagnosis for this admission?: Yes (6) Chest pain, unspecified Is this a current diagnosis for this admission?: Yes (7) COPD (chronic obstructive pulmonary disease) Is this a current diagnosis for this admission?: Yes (8) MARIELENA (obstructive sleep apnea) Is this a current diagnosis for this admission?: Yes (9) Migraine headache Is this a current diagnosis for this admission?: Yes - Additional Information Resuscitation Status: Full Code Discharge Diet: Cardiac, Diabetic Discharge Activity: Activity As Tolerated, Balance Activity w/Rest, Weigh Daily Referrals: FANNIE GUZMAN MD [NO LOCAL MD] - 01/03/20 3:10 pm (Dr. Guzman is the only endocrinolgist in the practice and patient already had an appointment for December which is the earliest availiable.) ROD PERRY DO [Primary Care Provider] - 10/05/19 2:15 pm Prescriptions: Carvedilol [Coreg 12.5 mg Tablet] 12.5 mg PO Q12 30 Days #60 tablet Atorvastatin Calcium [Lipitor 40 mg Tablet] 40 mg PO QHS 30 Days #30 tablet Cordell-3 Acid Ethyl Esters [Lovaza] 1 gm PO BID 30 Days #60 capsule Home Medications: Allopurinol [Zyloprim 100 mg Tablet] 400 mg PO DAILY 09/26/19 Cetirizine HCl [Zyrtec 10 mg Tablet] 10 mg PO DAILY 09/26/19 Cyanocobalamin (Vitamin B-12) [Vitamin B-12 1000 mcg Tablet] 1,000 mcg PO DAILY 09/26/19 Cyclobenzaprine HCl [Flexeril 10 mg Tablet] 10 mg PO Q8HP PRN 09/26/19 Dulaglutide [Trulicity] 0.75 mg SQ TH 09/26/19 Esomeprazole Magnesium 40 mg PO QAM 09/26/19 Furosemide [Lasix 40 mg Tablet] 40 mg PO DAILY 09/26/19 Glipizide [Glucotrol] 10 mg PO DAILY 09/26/19 Losartan Potassium 100 mg PO DAILY 09/26/19 Magnesium Oxide [Mag-Ox 400 mg Tablet] 400 mg PO DAILY 09/26/19 Montelukast Sodium [Singulair 10 mg Tablet] 10 mg PO QPM 09/26/19 Multivitamin [Multiple Vitamins] 1 tab PO DAILY 09/26/19 Nifedipine [Nifedipine ER] 30 mg PO DAILY 09/26/19 Atorvastatin Calcium [Lipitor 40 mg Tablet] 40 mg PO QHS 30 Days #30 tablet 09/28/19 Carvedilol [Coreg 12.5 mg Tablet] 12.5 mg PO Q12 30 Days #60 tablet 09/28/19 Cordell-3 Acid Ethyl Esters [Lovaza] 1 gm PO BID 30 Days #60 capsule 09/28/19 History of Present Illiness History of Present Illness: NILTON FARRELL is a 54 year old male with history of diabetes, hypertension, hypertriglyceridemia, COPD and multiple other comorbidities states that over the last day or 2 he has been feeling short of breath. He has had a headache. He felt dizzy and there was tightness in his chest. His pulse was pounding in his head with a rushing sensation in his ears. He took medications last night but his blood pressure was still high. He denies any fever or chills. He reports no respiratory symptoms. He does state that he has been having trouble with blood pressure control ever since he stopped his Coreg several months ago. His pediatric associate is Dr. Phelps (he will see him tomorrow) and he has tried multiple different combinations of medicines to try and achieve better blood pressure control. On examination his blood pressure was as high as 176/110. His pulse was never elevated. He was tachypneic but did not require oxygen. Laboratory studies showed a glucose of 414 with a BUN of 29 and a creatinine of 1.6. His sodium was slightly low at 134 but he had normal potassium levels. His EKG was unremarkable. Imaging of the chest and CT of the head were unremarkable. He was referred to the hospitalist service for admission. Dr. Phelps will see him in the morning. Hospital Course Hospital Course: (1) Hypertensive emergency Optimized. Used to take carvedilol and nifedipine with good result. Had DC'd his carvedilol in the past attributing it with his erectile dysfunction.. Restarted losartan, carvedilol, nifedipine and Lasix. PRN IV hydralazine. Renal Doppler not optimal due to body habitus, otherwise negative for any renal artery stenosis. Started on cardiac diet, strict in and out. Cardiology consulted. Recommendations noted. Patient wants advised to follow- up with cardiology. (2) Acute kidney injury superimposed on CKD Nonoliguric. Denies any uremic symptoms. Creatinine back to baseline. Likely due to hypertensive emergency. Baseline creatinine 1.5. Monitored volume status and electrolytes. (3) Heart failure Likely acutely exacerbated due to hypertensive emergency. Denied any history of CAD. BNP on previous admission negative. No BNP on this admission yet. Echocardiogram 09/01/2017 at [facility]. Left ventricular ejection fraction 60%. Grade 1 diastolic dysfunction. Nuclear stress test on 09/02/2018. No evidence of ischemia or infarct. Normal ejection fraction. Continued beta-blockers, ARB, diuretics. Cardiac diet. Strict in and out. Cardiology on board. Recommendations noted. (4) Diabetes Controlled. Hemoglobin A1c 7.9%. Home meds are Trulicity and glipizide. Continued diabetic diet. Accu-Chek. Hypoglycemia protocol. Basal, sliding and correctional insulin. Advised to resume home meds upon discharge. Outpatient PCP follow-up. (5) Hyperlipidemia ASCVD score of 29.6%. Patient takes TriCor at home. Given elevated ASCVD score of 29.6 patient needs to be on high intensity statins. Switched TriCor with omega-2 g daily for hypertriglyceridemia as TriCor can exacerbate myositis caused by statins. Staretd on atorvastatin 40 mg nightly and Cordell-3 fatty acid 2 g daily. (6) Chest pain, unspecified Resolved. Most likely due to hypertensive emergency. Troponin 0.015. EKG sinus rhythm. Nonspecific interventricular conduction delay. Negative nuclear stress test on 10/26/2018. Continued statins, beta-blockers, ABBEY, antiplatelets. PRN morphine and sublingual nitroglycerin. (7) COPD (chronic obstructive pulmonary disease) Did not seem to be acutely exacerbated. Continued current treatment. (8) MARIELENA (obstructive sleep apnea) Nocturnal CPAP. Outpatient nocturnal polysomnography. (9) Migraine headache History of uncontrolled migraine. Denies any focal nausea symptoms. Has been seen by neurologist has failed sumatriptan and naratriptan. Was supposed to be started on eletriptan by neurologist however he has not filled his prescription due to financial reasons. Unfortunately we do not carry eletriptan here at [facility]. Physical Exam Vital Signs: Temp Pulse Resp BP Pulse Ox 97.4 F 64 18 155/91 H 95 09/28/19 10:56 09/28/19 10:56 09/28/19 10:56 09/28/19 10:56 09/28/19 10:56 General appearance: PRESENT: no acute distress, well-developed, well-nourished Head exam: PRESENT: atraumatic, normocephalic Respiratory exam: PRESENT: clear to auscultation ruthann. ABSENT: rales, rhonchi, wheezes Cardiovascular exam: PRESENT: RRR. ABSENT: diastolic murmur, rubs, systolic murmur GI/Abdominal exam: PRESENT: normal bowel sounds, soft. ABSENT: distended, guarding, mass, organolmegaly, rebound, tenderness Neurological exam: PRESENT: alert, awake, oriented to person, oriented to place, oriented to time, oriented to situation, CN II-XII grossly intact. ABSENT: motor sensory deficit Results Laboratory Results: WBC 11.9 10^3/uL (4.0-10.5) H 09/28/19 09:57 RBC 5.08 10^6/uL (4.35-5.55) 09/28/19 09:57 Hgb 15.5 g/dL (13.5-17.0) 09/28/19 09:57 Hct 45.5 % (37.9-51.0) 09/28/19 09:57 MCV 90 fl (80-97) 09/28/19 09:57 MCH 30.5 pg (27.0-33.4) 09/28/19 09:57 MCHC 34.0 g/dL (32.0-36.0) 09/28/19 09:57 RDW 15.2 % (11.5-14.0) H 09/28/19 09:57 Plt Count 253 10^3/uL (150-450) 09/28/19 09:57 Lymph % (Auto) 17.4 % (13-45) 09/28/19 09:57 Stokes % (Auto) 8.5 % (3-13) 09/28/19 09:57 Eos % (Auto) 0.7 % (0-6) 09/28/19 09:57 Baso % (Auto) 0.3 % (0-2) 09/28/19 09:57 Absolute Neuts (auto) 8.7 10^3/uL (1.7-8.2) H 09/28/19 09:57 Absolute Lymphs (auto) 2.1 10^3/uL (0.5-4.7) 09/28/19 09:57 Absolute Monos (auto) 1.0 10^3/uL (0.1-1.4) 09/28/19 09:57 Absolute Eos (auto) 0.1 10^3/uL (0.0-0.6) 09/28/19 09:57 Absolute Basos (auto) 0.0 10^3/uL (0.0-0.2) 09/28/19 09:57 Seg Neutrophils % 73.1 % (42-78) 09/28/19 09:57 Sodium 136.1 mmol/L (137-145) L 09/28/19 09:57 Potassium 4.4 mmol/L (3.6-5.0) 09/28/19 09:57 Chloride 103 mmol/L (98-107) 09/28/19 09:57 Carbon Dioxide 25 mmol/L (22-30) 09/28/19 09:57 Anion Gap 8 (5-19) 09/28/19 09:57 BUN 40 mg/dL (7-20) H 09/28/19 09:57 Creatinine 1.74 mg/dL (0.52-1.25) H 09/28/19 09:57 Est GFR ( Amer) 50 (>60) L 09/28/19 09:57 Est GFR (MDRD) Non-Af 41 (>60) L 09/28/19 09:57 Glucose 181 mg/dL (75-110) H 09/28/19 09:57 POC Glucose 144 mg/dL (70-110) H 09/28/19 12:40 Hemoglobin A1c % 7.9 % (4.7-6.0) H 09/26/19 04:17 Calcium 9.3 mg/dL (8.4-10.2) 09/28/19 09:57 Magnesium 2.0 mg/dL (1.6-2.3) 09/26/19 04:17 Total Bilirubin 0.6 mg/dL (0.2-1.3) 09/25/19 10:08 Direct Bilirubin 0.0 mg/dL (0.0-0.4) 09/25/19 10:08 Neonat Total Bilirubin Not Reportable 09/25/19 10:08 Neonat Direct Bilirubin Not Reportable 09/25/19 10:08 Neonat Indirect Bili Not Reportable 09/25/19 10:08 AST 44 U/L (17-59) 09/25/19 10:08 ALT 85 U/L (<50) H 09/25/19 10:08 Alkaline Phosphatase 97 U/L (38-126) 09/25/19 10:08 Troponin I 0.015 ng/mL 09/25/19 13:00 Total Protein 6.9 g/dL (6.3-8.2) 09/25/19 10:08 Albumin 4.1 g/dL (3.5-5.0) 09/25/19 10:08 Triglycerides 487 mg/dL (<150) H 09/26/19 04:17 Cholesterol 216.92 mg/dL (0-200) H 09/26/19 04:17 LDL Cholesterol Direct 125 mg/dL (<100) H 09/26/19 04:17 VLDL Cholesterol, Calc UNABLE TO CALCULATE 09/26/19 04:17 HDL Cholesterol 34 mg/dL (>40) L 09/26/19 04:17 Urine Color STRAW 09/25/19 10:08 Urine Appearance CLEAR 09/25/19 10:08 Urine pH 6.0 (5.0-9.0) 09/25/19 10:08 Ur Specific [place] 1.010 09/25/19 10:08 Urine Protein 100 mg/dL (NEGATIVE) H 09/25/19 10:08 Urine Glucose (UA) >=500 mg/dL (NEGATIVE) H 09/25/19 10:08 Urine Ketones NEGATIVE mg/dL (NEGATIVE) 09/25/19 10:08 Urine Blood NEGATIVE (NEGATIVE) 09/25/19 10:08 Urine Nitrite (Reflex) NEGATIVE (NEGATIVE) 09/25/19 10:08 Urine Bilirubin NEGATIVE (NEGATIVE) 09/25/19 10:08 Urine Urobilinogen NEGATIVE mg/dL (<2.0) 09/25/19 10:08 Leukocyte Esterase Rfl NEGATIVE (NEGATIVE) 09/25/19 10:08 Urine RBC (Auto) 1 /HPF 09/25/19 10:08 Urine WBC (Reflex) < 1 /HPF 09/25/19 10:08 Urine Ascorbic Acid NEGATIVE (NEGATIVE) 09/25/19 10:08 09/25/19 09/25/19 10:08 13:00 Troponin I 0.021 0.015 Impressions: Chest X-Ray 09/25/19 09:48 IMPRESSION: No acute cardiopulmonary process. Head CT 09/25/19 09:48 IMPRESSION: No acute intracranial abnormality. EVIDENCE OF ACUTE STROKE: NO. Renal Artery Duplex 09/27/19 00:00 IMPRESSION: Nonvisualization of the renal artery origins due to body habitus and overlying bowel gas. Velocities at the renal artery hilum and segmental arteries are normal. Waveforms appear normal. Stroke Is this a Stroke Patient?: No Acute Heart Failure - Is this a Heart Failure Patient?: No
== END 2019-09-28 13:22 | disposition home or self-care (01) | DRG 304 ==
LOC: ER 09:13 → EH 12:39 → 3S 20:06
PROVIDERS: ADMIT Hospitalist; ATTEND Hospitalist
PROC: 5A09457 Assistance with Respiratory Ventilation, 24-96 Consecutive Hours, Continuous Positive Airway Pressure (ICD-10-PCS; principal; 2019-09-25)
DX: I16.1 Hypertensive emergency (principal); I50.33 Acute on chronic diastolic (congestive) heart failure; N17.9 Acute kidney failure, unspecified; E87.1 Hypo-osmolality and hyponatremia; I13.0 Hypertensive heart and chronic kidney disease with heart failure and stage 1 through stage 4 chronic kidney disease, or unspecified chronic kidney disease; E11.65 Type 2 diabetes mellitus with hyperglycemia; E11.22 Type 2 diabetes mellitus with diabetic chronic kidney disease; N18.2 Chronic kidney disease, stage 2 (mild); E78.5 Hyperlipidemia, unspecified; G43.819 Other migraine, intractable, without status migrainosus; G47.33 Obstructive sleep apnea (adult) (pediatric); L40.50 Arthropathic psoriasis, unspecified; J44.9 Chronic obstructive pulmonary disease, unspecified; E78.1 Pure hyperglyceridemia; M13.0 Polyarthritis, unspecified; Z87.891 Personal history of nicotine dependence; Z88.8 Allergy status to other drugs, medicaments and biological substances; Z79.899 Other long term (current) drug therapy; Z59.7 Insufficient social insurance and welfare support
CPT/HCPCS: 36415; 70450; 71046; 80048; 80053; 80061; 81001; 82962; 83036; 83735; 84484; 85025; 93005; 93010; 93306; 93975; 94640; 99285; J0360; J1644; J1815; J3490; J7030; J7620; S0183